=== PATIENT | female | born 1940 | race Caucasian/White ===

== ENCOUNTER 2017-01-19 13:05 | Emergency (ER) | payer OTHER, BC ==
[2017-01-19 13:19] VITALS: RESP 16
--- NOTE | 2017-01-19 14:18 | EDPHY ---
H & P Time Seen by Provider: 01/19/17 13:55 HPI/ROS: CHIEF COMPLAINT: Red, swollen ankle HISTORY OF PRESENT ILLNESS: Patient is a 76-year-old female who presents with ongoing left foot/ankle swelling. Her symptoms started in July. She has been seen multiple times to evaluate her foot swelling and redness. She is undergoing cataract surgery. She had preop prior to the 1st surgery last week. Dr. Kathleen cleared for surgery. On Thursday she saw a electric meter installer. Summer Internship nurse called this morning and stated she wanted her evaluated for clot consented the emergency department prior to cataract surgery tomorrow. The patient has no new complaints. It is not drastically changing. Dr. Kathleen performed her preop evaluation with the same symptoms. A swab was performed by Dr. Kathleen that was negative for bacteria. Patient had a recent hemoglobin A1c of 5.1. REVIEW OF SYSTEMS: My complete review of systems is negative except as mentioned in the HPI. Past Medical/Surgical History: Includes cataract, HTN, anxiety, high cholesterol Smoking Status: Never smoked Physical Exam: Vitals noted GENERAL: Well-appearing, in no acute distress, alert. HEENT: Eyes normal to inspection, normal pharynx, no signs of dehydration. NECK: No thyromegaly, no lymphadenopathy, supple. RESPIRATORY: Clear to auscultation bilaterally, no rales, rhonchi or wheezing. CVS: Regular rate and rhythm, no rubs, murmurs, or gallops. ABDOMEN: Soft, nontender, nondistended, no organomegaly. BACK: Normal to inspection, no CVA tenderness. SKIN: Normal color, no rash, warm, dry. No pallor. EXTREMITIES: patient has stasis skin changes on her lower extremities bilaterally. Her left foot has mild redness with a small ulceration. There is no significant discharge. There is mild tenderness to palpation surrounding area. She has mild swelling over her left lateral malleolus. There is no calf tenderness or redness. No streaking up the leg. She has bilateral knee swelling that is longstanding. NEURO/PSYCH: [Alert and oriented x3, normal mood and affect, normal motor sensory exam. No obvious cranial nerve deficit. Constitutional: Initial Vital Signs Temperature (C) 36.9 C 01/19/17 13:15 Heart Rate 75 01/19/17 13:15 Respiratory Rate 16 01/19/17 13:15 Blood Pressure 131/69 H 01/19/17 13:15 O2 Sat (%) 94 01/19/17 13:15 O2 Delivery Mode Room Air Allergies/Adverse Reactions: oxycodone [From OxyContin] Allergy (Verified 01/19/17 13:15) Home Medications: Medication Instructions Recorded Escitalopram Oxalate 01/19/17 Lisinopril 01/19/17 SIMVASTATIN 01/19/17 Medical Decision Making - Diagnostics Imaging Results: Imaging Impressions Extremity Venous Study 01/19/17 14:41 Impression: No deep venous thrombosis in the left lower extremity. Findings discussed with Chey Freeman M.D. at 15:14 hour, 01/19/2017. ED Course/Re-evaluation: In the emergency department I discussed possible etiologies with the patient. Ultrasound was ordered of the left lower extremity. Ultrasound left lower extremity: No DVT. I discussed the result with the patient. She is given warnings prior to leaving. She will return with worsening symptoms. Differential Diagnosis: My differential includes but is not limited to DVT, arterial occlusion, gout, ulceration, septic joint, abscess, cellulitis, diabetes Departure - Departure Disposition: Home, Routine, Self-Care Clinical Impression: Foot ulcer Qualifiers: Laterality: left Non-pressure ulcer stage: unspecified non-pressure ulcer stage Qualified Code(s): L97.529 - Non-pressure chronic ulcer of other part of left foot with unspecified severity Condition: Good Instructions: Pressure Ulcer (ED) Additional Instructions: Return with increasing pain, redness, fever or any other concerns. Your ultrasound was normal. Referrals: Sarahi Kathleen MD [Primary Care Provider] - 2-3 days, call for appt.
[2017-01-19 15:43] VITALS: BP 150/84; PULSE 62; TEMP 98.1; O2SAT 96
== END 2017-01-19 15:43 | disposition home or self-care (01) ==
DX: L97.529 Non-pressure chronic ulcer of other part of left foot with unspecified severity (principal); I10 Essential (primary) hypertension

== ENCOUNTER → 2017-04-25 | Outpatient (CLI) | payer OTHER, BC | LOC: BMCIMAGING 12:44 | PROVIDERS: ATTEND Family Medicine | DX: R05 Cough (principal); R50.9 Fever, unspecified; M25.78 Osteophyte, vertebrae ==

== ENCOUNTER 2018-07-12 09:52 | Inpatient (IN) | payer OTHER ==
--- NOTE | 2018-07-12 10:18 | EDPHY ---
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 C/o bk pain, N/V. Time Seen by Provider: 07/12/18 10:01 HPI/ROS: CHIEF COMPLAINT: Vomiting, back pain post mechanical fall HISTORY OF PRESENT ILLNESS: 77-year-old female states that 3 days ago she sustained a mechanical fall, slipped while she was cleaning at her daughter's house, fell on her buttock, injured her lower back on her buttock and also impacted the occipital region of her head. No loss of consciousness. No alcohol or drug use. No amnesia. No anticoagulant use but does note that starting that evening she has had intermittent episodes of vomiting as well as nonprogressive non thunderclap headache. No definitive midline C-spine pain but does note that she has felt "soreness"in her cervical region. She notes that she has had increasing difficulty caring for self and getting around her independent living facility [facility]. She denies: Peripheral paresthesia, weakness, numbness, facial injury, chest pain or injury, chest pain, syncope. PRIMARY CARE PROVIDER:Dr Muniz REVIEW OF SYSTEMS: 10 systems reviewed and negative with the exception of the elements mentioned in the history of present illness PAST MEDICAL/SURGICAL HISTORY: no anticoagulant use, history of hypertension. SOCIAL HISTORY: denies alcohol use at time of incident. Lives independently at [facility] PHYSICAL EXAM 1) GENERAL: Well-developed, well-nourished, alert and oriented. Appears to be in no acute distress. Answering questions appropriately. 2) HEAD: Normocephalic, atraumatic, no hematoma no depression 3) HEENT: Pupils equal, round, reactive to light bilaterally. Negative Horners. Nasopharynx, oropharynx, clear. No deformity or angulation of nose. No septal hematoma. No rhinorrhea. No oral trauma. Ears bilaterally with normal tympanic membranes. No hemotympanum. No fluid or blood in the external auditory canal. No raccoon eyes. No Jackson sign. Teeth are normally aligned with no gross malocclusion, TMJ bilaterally nontender, facial bones nontender including the zygomatic arch, maxilla mandible. 4) NECK: No cervical collar is on. Posterior cervical spine is nontender, no stepoff, no effusion. Full range of motion which does not elicit any midline cervical spine pain, no posterior midline tenderness, no step-off. 5) LUNGS: Clear to auscultation bilaterally, no wheezes, no rhonchi, no retractions. No obvious signs of trauma. No chest wall pain. No flaring, no grunting. Moving symmetrically. No crepitus. 6) HEART: [Regular rate and rhythm, 7) ABDOMEN: No guarding, no rebound, no focal tenderness, no peritoneal signs, no signs of trauma, no ecchymosis 8) MUSCULOSKELETAL: Moving all extremities, no focal areas of tenderness, no obvious trauma. No leg length discrepancy. No pain with range of motion of the femur on acetabulum. 9) BACK: Unable to fully differentiate true midline versus just lateral midline mid lumbar pain. No thoracic spine pain. There are no signs of trauma to the entirety of her back. She is also tender to palpation the sacrum as well as bilateral inferior buttock region with no signs of trauma such as ecchymosis or erythema. 10) SKIN: No laceration. No abrasion DIFFERENTIAL DIAGNOSIS: Not necessarily in any particular order, my differential diagnosis includes, but is not limited to, concussion, skull fracture, intraparenchymal contusion, subarachnoid, subdural and epidural hematoma. The patient understands that this diagnosis is provisional and can never be 100% accurate. - Personal History Current Tetanus/Diphtheria Vaccine: Unsure - Medical/Surgical History Hx Asthma: No Hx Chronic Respiratory Disease: No Hx Diabetes: No Hx Cardiac Disease: No Hx Renal Disease: No Hx Cirrhosis: No Hx Alcoholism: No Hx HIV/AIDS: No Hx Splenectomy or Spleen Trauma: No Other PMH: htn r rotator cuff/ r knee surg, HTN - Social History Smoking Status: Never smoked Constitutional: Initial Vital Signs Temperature (C) 36.9 C 07/12/18 09:57 Heart Rate 61 07/12/18 09:57 Respiratory Rate 16 07/12/18 09:57 Blood Pressure 195/76 H 07/12/18 09:57 O2 Sat (%) 94 07/12/18 09:57 O2 Delivery Mode Room Air Allergies/Adverse Reactions: oxycodone [From OxyContin] Allergy (Verified 01/19/17 13:15) Home Medications: Medication Instructions Recorded Escitalopram Oxalate 01/19/17 Lisinopril 01/19/17 SIMVASTATIN 01/19/17 Medical Decision Making - Diagnostics Imaging Results: Imaging Impressions Head CT 07/12/18 10:07 Impression: 1. No acute intracranial findings. 2. Diffuse cerebral atrophy with periventricular and subcortical low attenuation consistent with chronic microvascular ischemic gliosis. 3. Additional findings as above. Findings discussed with Jelena Gomez 07/12/2018 at 10:42. Cervical Spine CT 07/12/18 10:09 Impression: 1. No acute posttraumatic abnormality identified. If there is persistent pain or neurologic deficit, consider MRI and/or flexion and extension views if clinically indicated. 2. Multilevel degenerative change with spondylolistheses with probable moderate spinal canal narrowing from C5 through C7. 3. Additional findings as above. Findings discussed with Angelita Gomez on 07/12/2018 at 10:42 a.m. Lumbar Spine X-Ray 07/12/18 10:09 Impression: New/acute mild L1 compression fracture. No retropulsed component. Findings discussed with Emergency Department physician maintenance assistant, Angelita Gomez, on 07/12/2018 at 11:21 a.m. Sacrum and Coccyx X-Ray 07/12/18 10:09 Impression: Negative. No acute coccygeal or sacral fracture. Findings discussed with Emergency Department physician maintenance assistant, Angelita Gomez. Images reviewed myself ED Course/Re-evaluation: 10:15 a.m.: Will obtain imaging of the head C-spine as well as lumbar sacrum and pelvis. Case management has been made aware. I saw this patient independently based on established practice protocols. Care of patient under supervision of secondary supervising physician Dr Martinez with whom I discussed case. 11:25 a.m.: Patient has a new L1 compression fracture with no neurologic deficits lower extremities. She has had increasing difficulty caring for herself and her adult daughter is currently Hospital for total knee replacement. I think the patient should be admitted to the hospital for neurosurgery consultation, PT OT, pain management and likely rehabilitation care. Patient is agreeable with this. Will consult Neurosurgery and hospitalist services. 11:27 a.m.: Consultation with Dr. Saturnino Rojo who recommends MRI, Ewa mascorro, will consult for Neurosurgery 11:45 a.m.: Consultation with hospitalist Yuni, admit to Dr. Daniel Posada - Data Points Laboratory Results: Laboratory Results 07/12/18 10:02 07/12/18 10:02 07/12/18 07/12/18 10:02 10:02 WBC 10.54 10^3/uL H 10^3/uL (3.80-9.50) RBC 4.77 10^6/uL 10^6/uL (4.18-5.33) Hgb 13.8 g/dL g/dL (12.6-16.3) Hct 41.3 % % (38.0-47.0) MCV 86.6 fL fL (81.5-99.8) MCH 28.9 pg pg (27.9-34.1) MCHC 33.4 g/dL g/dL (32.4-36.7) RDW 14.0 % % (11.5-15.2) Plt Count 227 10^3/uL 10^3/uL (150-400) MPV 8.9 fL fL (8.7-11.7) Neut % (Auto) 82.3 % H % (39.3-74.2) Lymph % (Auto) 9.0 % L % (15.0-45.0) [place] % (Auto) 8.0 % % (4.5-13.0) Eos % (Auto) 0.1 % L % (0.6-7.6) Baso % (Auto) 0.2 % L % (0.3-1.7) Nucleat RBC Rel Count 0.0 % % (0.0-0.2) Absolute Neuts (auto) 8.68 10^3/uL H 10^3/uL (1.70-6.50) Absolute Lymphs (auto) 0.95 10^3/uL L 10^3/uL (1.00-3.00) Absolute Monos (auto) 0.84 10^3/uL H 10^3/uL (0.30-0.80) Absolute Eos (auto) 0.01 10^3/uL L 10^3/uL (0.03-0.40) Absolute Basos (auto) 0.02 10^3/uL 10^3/uL (0.02-0.10) Absolute Nucleated RBC 0.00 10^3/uL 10^3/uL (0-0.01) Immature Gran % 0.4 % % (0.0-1.1) Immature Gran # 0.04 10^3/uL 10^3/uL (0.00-0.10) Sodium 135 mEq/L mEq/L (135-145) Potassium 3.8 mEq/L mEq/L (3.3-5.0) Chloride 98 mEq/L mEq/L (97-110) Carbon Dioxide 27 mEq/l mEq/l (22-31) Anion Gap 10 mEq/L mEq/L (6-14) BUN 18 mg/dL mg/dL (7-23) Creatinine 0.5 mg/dL L mg/dL (0.6-1.0) Estimated GFR > 60 Glucose 110 mg/dL H mg/dL (70-100) Calcium 9.3 mg/dL mg/dL (8.5-10.4) Medications Given: Discontinued Medications Hydromorphone HCl (Dilaudid) 0.5 mg IVP EDNOW ONE Stop: 07/12/18 11:00 Last Admin: 07/12/18 11:02 Dose: 0.5 mg Departure - Departure Disposition: [facility] Inpatient Acute Clinical Impression: L1 vertebral fracture Condition: Fair Referrals: NONE *PRIMARY CARE P,. [Primary Care Provider] - As per Instructions
[2018-07-12] MEDS ORDERED: HYDROmorphONE/DILAUDID 2 MG/ML INJ IVP ONE (10:59)
[2018-07-12 11:40] LABS: PLATELET COUNT 227 10^3/uL (150-400)
[2018-07-12] MEDS ORDERED: ONDANSETRON DISINTEGRATING 4 MG TAB PO PRN (12:01)
[2018-07-12] MEDS ORDERED: HYDROmorphONE/DILAUDID 1 MG/ML INJ IVP PRN (12:01)
[2018-07-12] MEDS ORDERED: ACETAMINOPHEN 325 MG TAB PO PRN (12:01)
--- NOTE | 2018-07-12 13:19 | ASMTCMCOM ---
CM Note CM Note Notes: Patient lives independently at [facility] in [place]. She has a daughter, Marlena , who lives in [place] and her son Herbie lives in [place]. Marlena is in surgery having a total knee replacement (TKA) today. Patient will likely need HH or SNF at discharge. CM to follow Date Signed: 07/12/2018 01:18 PM Electronically Signed By:Elizabeth Arrington RN
--- NOTE | 2018-07-12 13:50 | GCON ---
NEUROSURGICAL CONSULTATION IN THE EMERGENCY DEPARTMENT DATE OF CONSULTATION: 07/12/2018 CHIEF COMPLAINT: Back pain. HISTORY OF PRESENT ILLNESS: This is a very pleasant 77-year-old female who tripped and fell down the stairs approximately 1 week ago with some low back pain that has slowly worsened. She also has some constipation. She complains of low back pain with no radiation. She complains of some abdominal pa in secondary to her constipation, no leg pain, no numbness, tingling or weakness in her legs. She st ates that at this point in time, it was bad enough that she came in for pain control, was found to atkinson ve an L1 compression fracture that is acute on MRI without significant retropulsion or stenosis. She denies any other neck pain, back pain, or any other complaints. PAST MEDICAL HISTORY: Positive for hypertension, hypercholesterolemia. PAST SURGICAL HISTORY: Includes a shoulder repair, right TKA, a T and A, and a hysterectomy. HOME MEDICATIONS: 1. Tylenol. 2. [place]. 3. Dilaudid. 4. Zofran. 5. Simvastatin. 6. Lisinopril. 7. Escitalopram oxalate. ALLERGIES: Some sort of [id number] allergy that caused her to have swelling. She does not kno w the name of the medication. FAMILY HISTORY: She has no significant family medical history. REVIEW OF SYSTEMS: A 10-point review of systems was negative except as stated above. SOCIAL HISTORY: She does not smoke. She does not drink. She does not use illicit drugs. PHYSICAL EXAMINATION: VITAL SIGNS: Blood pressure is 147/70. Heart rate is 70, respiratory rate 16 , sating 96% on room air. GENERAL APPEARANCE: She is alert and oriented x3. NEUROLOGIC: Pupils eq ual, round, reactive to light and accommodation. Extraocular muscles are intact. There is no facial asymmetry or tongue deviation. Sensation is intact in V1, V2, V3 distributions of the 5th cranial n erve bilaterally. Strength is 5/5 to left deltoid, biceps, triceps, wrist flexors, wrist extensors, hand intrinsics, right biceps, triceps, wrist flexors, wrist extensors. Some pain with the right fabrizio ulder, which she has had repaired. Strength is 5/5 to bilateral lower extremities and iliopsoas, yobani driceps, hamstrings, dorsiflexors, plantarflexors, EHLs. DTRs are +2/4 biceps, brachioradialis, oconnor llar, and Achilles. Toes are downgoing. There is no Rodgers's. No clonus. LABORATORY/IMAGING DATA: White blood cell count 10.54, hemoglobin 13.8, hematocrit 41.3. Platelets are 227. Sodium is 135, potassium 3.8, chloride 98, CO2 27, BUN 18, creatinine 0.5, glucose 110. MR I of the lumbar spine reveals an acute L1 compression fracture with 20% to 30% height loss with a min imal bulge to the posterior cortex, however, no retropulsed fragment or narrowing of the central arely l. Minimal paraspinal edema is present. Otherwise mild degenerative disk disease is present. Head CT has diffuse cerebral atrophy and ischemic gliosis. No significant acute pathology. Cervical spine CT: Multilevel degenerative change with spondylolisthesis probable moderate spinal canal narr owing C5 through C7. No fracture or malalignment. Lumbar x-ray reveals the L1 compression fracture and degenerative disk disease, some grade 1 anterolisthesis of L4 on L5 that is degenerative in natur e. IMPRESSION AND PLAN: Acute L1 compression fracture in this pleasant 77-year-old female. At this poi nt in time, she is being admitted to Medicine for pain control. We will get her a Ewa brace, get her up and mobilize. If we can get her pain controlled with the Ewa brace, then she may be discha rged with x-rays in approximately 4 weeks. If she is still having difficulty and cannot get her pain under control, she may consider a kyphoplasty. We will continue to follow for pain control. Please call with any changes in neurologic status. /[id number]/MODL
[2018-07-12] MEDS ORDERED: BISACODYL 10 MG SUPP PR PRN (14:03)
[2018-07-12] MEDS ORDERED: POLYETHYLENE GLYCOL 3350 17 GM PKT PO PRN (14:03)
[2018-07-12] MEDS: HYDROCODONE/APAP 5/325 TAB PO PRN ×3 (14:06→22:53)
[2018-07-12] MEDS: MAGNESIUM HYDROXIDE 30 ML UDCUP PO PRN (14:14)
--- NOTE | 2018-07-12 14:14 | PDGENHP ---
History and Physical - Chief Complaint Fall, L1 Fracture - History of Present Illness Naty Alvarado is a 77 yo F with a PMHx of HTN, HLD who presents to [facility] after fall found to have L1 compression fracture. Patient states that she was over her daughter's house 3 days ago when she missed a step on the stairs and fell on her back. She denies any LOC at the time but she does report she also hit the back of her head during the fall. She has had a mild headache since the fall which has been improving. She also reports some cervical neck pain since accident as well. She reports major pain is located in her lower back, non- radiating, sharp in sensation, worse with movement and improved with rest. It has been persistent since fall and worsening since yesterday which prompted further evaluation today. She denies any urinary/bowel incontinence, leg weakness, numbness, tingling, vision changes, hearing changes, slurred speech, LH/dizziness, chest pain, SOB, f/c. She also notes constipation. History Information - Allergies/Home Medication List Allergies/Adverse Reactions: No Known Allergies Allergy (Verified 07/12/18 13:29) Home Medications: Escitalopram Oxalate [Lexapro] 10 mg PO HS 01/19/17 [Last Taken 07/11/18] Lisinopril [Zestril 2.5 mg (*)] 2.5 mg PO DAILY 01/19/17 [Last Taken 07/11/18] Simvastatin [Zocor] 40 mg PO DAILY18 01/19/17 [Last Taken 07/11/18] Acetaminophen [Tylenol ES 500 mg (*)] 1,000 mg PO DAILY 07/12/18 [Last Taken ] Aspirin [Aspirin 81mg (*)] 81 mg PO HS 07/12/18 [Last Taken 07/11/18] C/E/Zn/Cu/OM3/DHA/EPA/LUT/ZEAX [Preservision Areds 2 Softgel] 1 each PO BIDMEAL 07/12/18 [Last Taken 07/11/18 18:00] Calcium Carbonate [Oyster Shell Calcium 500 mg (*)] 500 mg PO DAILY@12 07/12/18 [Last Taken 07/11/18] Carboxymethylcellulose 1% [Refresh Celluvisc (*)] 1 drop EACHEYE DAILY PRN 07/12 [Last Taken Unknown] Ibuprofen [Motrin (*)] 200 mg PO DAILY PRN 07/12/18 [Last Taken Unknown] Psyllium Husk (with Sugar) [Metamucil Packet] 1 each PO DAILY 07/12/18 [Last Taken 07/11/18] I have personally reviewed and updated: family history, medical history, social history, surgical history - Past Medical History hypertension, hyperlipidemia - Surgical History Additional surgical history: TKA - Family History Positive for: non-pertinent - Social History Smoking Status: Never smoked Review of Systems Review of Systems: ROS: 10pt was reviewed & negative except for what was stated in HPI & below Physical Exam Physical Exam: Temp Pulse Resp BP Pulse Ox 36.9 C 55 L 12 152/71 H 95 07/12/18 13:45 07/12/18 13:45 07/12/18 13:45 07/12/18 13:45 07/12/18 13:45 O2 (L/minute) 2 Constitutional: no apparent distress Eyes: PERRL Ears, Nose, Mouth, Throat: moist mucous membranes Cardiovascular: regular rate and rhythym Respiratory: clear to auscultation Gastrointestinal: soft, non-tender abdomen Genitourinary: no bladder tenderness Skin: warm Musculoskeletal: pain with ROM Neurologic: AAOx3 Psychiatric: interacting appropriately Lab Data & Imaging Review 07/12/18 10:02 07/12/18 10:02 WBC 10.54 10^3/uL (3.80-9.50) H 07/12/18 10:02 RBC 4.77 10^6/uL (4.18-5.33) 07/12/18 10:02 Hgb 13.8 g/dL (12.6-16.3) 07/12/18 10:02 Hct 41.3 % (38.0-47.0) 07/12/18 10:02 MCV 86.6 fL (81.5-99.8) 07/12/18 10:02 MCH 28.9 pg (27.9-34.1) 07/12/18 10:02 MCHC 33.4 g/dL (32.4-36.7) 07/12/18 10:02 RDW 14.0 % (11.5-15.2) 07/12/18 10:02 Plt Count 227 10^3/uL (150-400) 07/12/18 10:02 MPV 8.9 fL (8.7-11.7) 07/12/18 10:02 Neut % (Auto) 82.3 % (39.3-74.2) H 07/12/18 10:02 Lymph % (Auto) 9.0 % (15.0-45.0) L 07/12/18 10:02 [place] % (Auto) 8.0 % (4.5-13.0) 07/12/18 10:02 Eos % (Auto) 0.1 % (0.6-7.6) L 07/12/18 10:02 Baso % (Auto) 0.2 % (0.3-1.7) L 07/12/18 10:02 Nucleat RBC Rel Count 0.0 % (0.0-0.2) 07/12/18 10:02 Absolute Neuts (auto) 8.68 10^3/uL (1.70-6.50) H 07/12/18 10:02 Absolute Lymphs (auto) 0.95 10^3/uL (1.00-3.00) L 07/12/18 10:02 Absolute Monos (auto) 0.84 10^3/uL (0.30-0.80) H 07/12/18 10:02 Absolute Eos (auto) 0.01 10^3/uL (0.03-0.40) L 07/12/18 10:02 Absolute Basos (auto) 0.02 10^3/uL (0.02-0.10) 07/12/18 10:02 Absolute Nucleated RBC 0.00 10^3/uL (0-0.01) 07/12/18 10:02 Immature Gran % 0.4 % (0.0-1.1) 07/12/18 10:02 Immature Gran # 0.04 10^3/uL (0.00-0.10) 07/12/18 10:02 Sodium 135 mEq/L (135-145) 07/12/18 10:02 Potassium 3.8 mEq/L (3.3-5.0) 07/12/18 10:02 Chloride 98 mEq/L (97-110) 10/15/18 10:02 Carbon Dioxide 27 mEq/l (22-31) 07/12/18 10:02 Anion Gap 10 mEq/L (6-14) 07/12/18 10:02 BUN 18 mg/dL (7-23) 07/12/18 10:02 Creatinine 0.5 mg/dL (0.6-1.0) L 07/12/18 10:02 Estimated GFR > 60 07/12/18 10:02 Glucose 110 mg/dL (70-100) H 07/12/18 10:02 Calcium 9.3 mg/dL (8.5-10.4) 07/12/18 10:02 Assessment & Plan Assessment: L1 vertebral fracture (Acute) - S/p mechanical fall - Seen on CT/MRI - Neurosurgery consulted who recommend non-surgical intervention for now with pain control, if this is not effective they will consider kyphoplasty - [place] Brace per neurosurgery - Pain control PRN - Bowel regimen ordered - PT/OT Mechanical Fall - Reports tripping over stairs, hit head - CT Head/C- Spine negative for acute injury - Management of L1 Fracture as above - Continue to monitor, if change in mental status, repeat head imaging HTN - Continue home Lisinopril HLD - Continue home Statin FEN: PRN Ppx: Lovenox Code: DNR Dispo: Pending clinical course, PT/OT recommendations
[2018-07-12] MEDS: HYDROmorphONE/DILAUDID 2 MG/ML INJ IVP PRN (14:27)
[2018-07-12] MEDS ORDERED: CARBOXYMETHYLCELLULOSE 1% 0.4 ML DROPERETTE EACHEYE PRN (14:27)
[2018-07-12] MEDS ORDERED: HYDROmorphone HCL 0.5 MG/0.5 ML SYR IVP PRN (14:30)
[2018-07-12] MEDS ORDERED: PNEUMOC 13-VAL CONJ-DIP CRM/PF 0.5 ML SYR IM ONE (15:16)
--- NOTE | 2018-07-12 15:19 | PDMN ---
Medical Necessity Medical necessity: MCG: GRG Musculoskeletal disease compression fx of first lumbar vertebra, initial encounter for closed fx 3 days: Pt is 77yr. old female who fell on stairs and fell on her back. now with sig. pain, worse with movement, persistent since fall and worsening. neuro consult: non surgical for now- cont. to monitor [place] Brace, PT/OT anticipate > 2 MN ongoing med nec care, further monitoring of mental status and pain, , PT/OT
[2018-07-12] MEDS ORDERED: hydrALAZINE 10 MG TAB PO PRN (15:30)
[2018-07-12] MEDS ORDERED: LISINOPRIL 2.5 MG TAB PO SCH (15:30)
[2018-07-12] MEDS: LISINOPRIL 5 MG TAB PO SCH (15:39)
[2018-07-12] MEDS: NS 1,000 ML IV SCH (18:06)
[2018-07-12] MEDS: IBUPROFEN 200 MG TAB PO PRN (18:13)
[2018-07-12] MEDS: ATORVASTATIN CALCIUM 20 MG TAB PO SCH (18:13)
[2018-07-12] MEDS: ASPIRIN 81 MG CHEWABLE TAB PO SCH (20:35)
[2018-07-12] MEDS: SENNOSIDES/DOCUSATE SODIUM TAB PO SCH (20:35)
[2018-07-12] MEDS: ESCITALOPRAM OXALATE 10 MG TAB PO SCH (20:35)
[2018-07-13] MEDS: HYDROmorphONE/DILAUDID 2 MG/ML INJ IVP PRN (08:19)
[2018-07-13] MEDS: HYDROCODONE/APAP 5/325 TAB PO PRN ×3 (08:21→18:39)
[2018-07-13] MEDS: SENNOSIDES/DOCUSATE SODIUM TAB PO SCH ×2 (08:29→20:01)
[2018-07-13] MEDS: LACTULOSE 20 GM/30 ML UDCUP PO PRN (08:29)
[2018-07-13] MEDS: LISINOPRIL 5 MG TAB PO SCH (08:30)
[2018-07-13] MEDS: ENOXAPARIN 40 MG/0.4 ML SYR SC SCH (08:30)
--- NOTE | 2018-07-13 08:34 | NEUSURGPN ---
Assessment/Plan: A: 77 yo F with back pain and L1 compression fx after fall P: Pain management - pt refusing [place] overnight now with out of control pain this am. Pt needs to stay on a better schedule of meds PT/OT Brace when OOB If fails bracing can consider kyphoplasty D/w Dr Campos Call NS with any issues Subjective: Pt resting in bed, c/o severe back pain and unable to roll over in bed Objective: AAOx3 tearful d/t pain VSS MAEx4 +LT Urinary Catheter in Place: No - Physician Discussed Patient with : Andres Neurosurgery Physical Exam - Vitals, I&O, Labs I and O 07/12/18 07/13/18 07/14/18 05:59 05:59 05:59 Intake Total 1500 Output Total 400 Balance 1100 Weight 68.039 kg Intake: Oral (ml) 300 IV Infused (ml) 1200 Ns 1,000 ml @ 100 mls/hr 1200 IV CONT SINTIA Rx#: [id number] Output: Urine (ml) 400 Bedside Commode 400 Other: Intake Quantity Yes Sufficient Number of Voids Bedside Commode 1 Vital Signs Temp Pulse Resp BP Pulse Ox 36.5 C 56 L 14 154/69 H 94 07/13/18 07:14 07/13/18 07:14 07/13/18 07:14 07/13/18 08:30 07/13/18 07:14 ICD10 Worksheet Patient Problems: Problems Problem Status Onset L1 vertebral fracture Acute
[2018-07-13] MEDS ORDERED: LISINOPRIL 5 MG TAB PO SCH (09:00)
[2018-07-13] MEDS ORDERED: LISINOPRIL 2.5 MG TAB PO SCH (09:00)
[2018-07-13] MEDS: HYDROmorphONE/DILAUDID 2 MG TAB PO PRN (10:13)
--- NOTE | 2018-07-13 11:14 | HOSPPROG ---
Hospitalist Progress Note Assessment/Plan: L1 vertebral fracture (Acute) - S/p mechanical fall - Seen on CT/MRI - Neurosurgery consulted who recommend non-surgical intervention for now with pain control, if this is not effective they will consider kyphoplasty - Ewa Brace per neurosurgery - Pain control PRN - Bowel regimen ordered - PT/OT Mechanical Fall - Reports tripping over stairs, hit head - CT Head/C- Spine negative for acute injury - Management of L1 Fracture as above - Continue to monitor, if change in mental status, repeat head imaging HTN - Continue home Lisinopril HLD - Continue home Statin FEN: PRN Ppx: Lovenox Code: DNR Dispo: Pending clinical course, PT/OT recommendations Subjective: Patient reports intense, severe pain this AM in lower back, has improved since receiving pain medications Objective: Vital Signs Temp Pulse Resp BP Pulse Ox 36.5 C 56 L 14 154/69 H 94 07/13/18 07:14 07/13/18 07:14 07/13/18 07:14 07/13/18 08:30 07/13/18 07:14 07/12/18 07/13/18 07/14/18 05:59 05:59 05:59 Intake Total 1500 Output Total 400 200 Balance 1100 -200 - Physical Exam Constitutional: no apparent distress Eyes: PERRL Ears, Nose, Mouth, Throat: moist mucous membranes Cardiovascular: regular rate and rhythym Respiratory: no respiratory distress Gastrointestinal: soft, non-tender abdomen Genitourinary: no bladder tenderness Skin: warm Musculoskeletal: pain with ROM Neurologic: AAOx3 Psychiatric: interacting appropriately ICD10 Worksheet Patient Problems: Problems Problem Status Onset L1 vertebral fracture Acute
--- NOTE | 2018-07-13 11:14 | ASMTCMCOM ---
CM Note CM Note Notes: Patient admitted after a fall in which she sustained a L1 compression fracture. She is currently complaining of a lot of pain. A brace has been recommended. I spoke with patient's daughter (who is also at [facility] after a TKA). She feels that SNF rehab would be most appropriate for patient because she lives alone and daughter cannot help right away (she is willing to take her in in a few weeks, however). We discussed options of facilities including [facility], [facility] and [facility]. Daughter will consult with patient and will let us know where they want referrals sent. PT/OT evals pending. Case Management will follow. Date Signed: 07/13/2018 11:13 AM Electronically Signed By:Kami Adams RN
[2018-07-13] MEDS: ONDANSETRON 4 MG/2 ML VIAL IVP PRN (11:22)
[2018-07-13] MEDS: CALCIUM CARBONATE 500 MG TAB PO SCH (11:22)
[2018-07-13] MEDS ORDERED: PROCTOFOAM HC 10 GM CAN PR PRN (17:38)
[2018-07-13] MEDS ORDERED: MAGNESIUM CITRATE 300 ML BOTTLE PO ONE (17:38)
[2018-07-13] MEDS: ATORVASTATIN CALCIUM 20 MG TAB PO SCH (18:02)
[2018-07-13] MEDS: ASPIRIN 81 MG CHEWABLE TAB PO SCH (20:01)
[2018-07-13] MEDS: ESCITALOPRAM OXALATE 10 MG TAB PO SCH (20:01)
[2018-07-14] MEDS: HYDROCODONE/APAP 5/325 TAB PO PRN ×4 (03:09→20:25)
[2018-07-14] MEDS: LISINOPRIL 5 MG TAB PO SCH (09:20)
[2018-07-14] MEDS: IBUPROFEN 200 MG TAB PO PRN ×3 (09:20→22:30)
[2018-07-14] MEDS: NS 1,000 ML IV SCH (09:26)
[2018-07-14] MEDS: ONDANSETRON 4 MG/2 ML VIAL IVP PRN (09:33)
[2018-07-14] MEDS: ENOXAPARIN 40 MG/0.4 ML SYR SC SCH (09:38)
--- NOTE | 2018-07-14 09:38 | SOAPPROG ---
SOAP Progress Note Assessment/Plan: Assessment: 77 yo F with L1 compression fracture after fall Plan: stable pain not improving with Jewit brace, patient would like kyphoplasty will look at OR schedule for tomorrow npo tonight hold lovenox for tomorrow morning dose please call with neuro changes discussed with Dr Campos 07/14/18 09:36 Subjective: continued back pain, brace uncomfortable and not helping with pain. no leg pain , no weakness. Objective: Vital Signs Temp Pulse Resp BP Pulse Ox 36.7 C 57 L 17 136/78 H 94 07/14/18 08:00 07/14/18 08:00 07/14/18 08:00 07/14/18 08:00 07/14/18 08:00 07/13/18 07/14/18 07/15/18 05:59 05:59 05:59 Intake Total 1500 1200 Output Total 400 400 Balance 1100 800 AAOx4, +FC PERRL, EOMI, no facial droop 5/5 + light touch ICD10 Worksheet Patient Problems: Problems Problem Status Onset L1 vertebral fracture Acute
[2018-07-14] MEDS: SENNOSIDES/DOCUSATE SODIUM TAB PO SCH ×2 (09:46→20:25)
--- NOTE | 2018-07-14 10:42 | HOSPPROG ---
Hospitalist Progress Note Assessment/Plan: L1 vertebral fracture (Acute) - S/p mechanical fall - Seen on CT/MRI - Neurosurgery consulted who will likely perform kyphoplasty tomorrow - Anabel Brace per neurosurgery - Pain control PRN - Bowel regimen ordered - PT/OT Mechanical Fall - Reports tripping over stairs, hit head - CT Head/C- Spine negative for acute injury - Management of L1 Fracture as above - Continue to monitor, if change in mental status, repeat head imaging HTN - Continue home Lisinopril HLD - Continue home Statin FEN: PRN Ppx: Lovenox, hold tomorrow's morning dose for OR Code: DNR Dispo: Pending clinical course, PT/OT recommendations Subjective: Patient reports pain this morning, had BMs overnight, feels improved from constipation stand point Objective: Vital Signs Temp Pulse Resp BP Pulse Ox 36.7 C 57 L 17 136/78 H 94 07/14/18 08:00 07/14/18 08:00 07/14/18 08:00 07/14/18 08:00 07/14/18 08:00 07/13/18 07/14/18 07/15/18 05:59 05:59 05:59 Intake Total 1500 1200 Output Total 400 400 Balance 1100 800 - Physical Exam Constitutional: no apparent distress, uncomfortable Eyes: PERRL Ears, Nose, Mouth, Throat: moist mucous membranes Cardiovascular: regular rate and rhythym Respiratory: no respiratory distress, clear to auscultation Gastrointestinal: soft, non-tender abdomen Genitourinary: no bladder tenderness Skin: warm Musculoskeletal: pain with ROM Neurologic: AAOx3 Psychiatric: interacting appropriately ICD10 Worksheet Patient Problems: Problems Problem Status Onset L1 vertebral fracture Acute
[2018-07-14] MEDS: CALCIUM CARBONATE 500 MG TAB PO SCH (10:51)
[2018-07-14] MEDS: METHOCARBAMOL 500 MG TAB PO PRN ×3 (10:51→22:30)
--- NOTE | 2018-07-14 14:08 | ASMTCMCOM ---
CM Note CM Note Notes: Spoke w/pt's dtr Mima, she would like referrals to go to [facility], referrals sent. Pt may be able to dc . DC Plan: SNF Date Signed: 07/14/2018 02:07 PM Electronically Signed By:Ashwini Lai RN
[2018-07-14] MEDS: ATORVASTATIN CALCIUM 20 MG TAB PO SCH (17:05)
[2018-07-14] MEDS: ESCITALOPRAM OXALATE 10 MG TAB PO SCH (20:24)
[2018-07-14] MEDS: ASPIRIN 81 MG CHEWABLE TAB PO SCH (20:25)
[2018-07-15] MEDS: HYDROCODONE/APAP 5/325 TAB PO PRN ×3 (04:19→18:21)
[2018-07-15] MEDS: METHOCARBAMOL 500 MG TAB PO PRN ×2 (04:19→10:42)
[2018-07-15] MEDS: LISINOPRIL 5 MG TAB PO SCH (08:45)
[2018-07-15] MEDS: SENNOSIDES/DOCUSATE SODIUM TAB PO SCH ×2 (08:49→21:26)
--- NOTE | 2018-07-15 08:59 | NEUSURGPN ---
Assessment/Plan: Assessment: 77 yo F with L1 compression fracture after fall Plan: Tolerating pain well in backpack style TLSO Standing/upright xrays in brace pending [facility] pain management PT/OT please call with neuro changes discussed with Dr Campos Subjective: Pain more tolerable this morning Objective: Sitting in chair eating breakfast. NAD A&Ox3 MAEx4 5/5 and equal. Sensation intact LT - Physician Discussed Patient with : And[facility] Neurosurgery Physical Exam - Vitals, I&O, Labs I and O 07/14/18 07/15/18 07/16/18 05:59 05:59 05:59 Intake Total 1200 1200 Output Total 400 300 Balance 800 900 Intake: Oral (ml) 1200 1200 Output: Urine (ml) 400 300 Toilet 400 300 Other: Intake Quantity Yes Sufficient Number of Voids Bedside Commode 1 Toilet 1 Number of Stools Bedside Commode 2 1 Toilet 1 Vital Signs Temp Pulse Resp BP Pulse Ox 36.8 C 60 12 159/67 H 92 07/15/18 08:00 07/15/18 08:00 07/15/18 08:00 07/15/18 08:45 07/15/18 08:00 ICD10 Worksheet Patient Problems: Problems Problem Status Onset L1 vertebral fracture Acute
[2018-07-15] MEDS: CALCIUM CARBONATE 500 MG TAB PO SCH (11:54)
--- NOTE | 2018-07-15 12:41 | HOSPPROG ---
Hospitalist Progress Note Assessment/Plan: L1 vertebral fracture (Acute) - S/p mechanical fall - Seen on CT/MRI - Neurosurgery consulted who were recommending kyphoplasty however patient has decided to not pursue surgery - Ewa Brace per neurosurgery - Pain control PRN - Bowel regimen ordered - PT/OT- recommending SNF - Repeat XR ordered by Neurosurgery this AM Mechanical Fall - Reports tripping over stairs, hit head - CT Head/C- Spine negative for acute injury - Management of L1 Fracture as above - Continue to monitor, if change in mental status, repeat head imaging HTN - Continue home Lisinopril HLD - Continue home Statin FEN: PRN Ppx: Lovenox, hold tomorrow's morning dose for OR Code: DNR Dispo: Pending clinical course, PT/OT recommendations- recommending SNF, CM working on this Subjective: Patient with moderate LBP this morning Objective: Vital Signs Temp Pulse Resp BP Pulse Ox 36.8 C 60 12 159/67 H 92 07/15/18 08:00 07/15/18 08:00 07/15/18 08:00 07/15/18 08:45 07/15/18 08:00 07/14/18 07/15/18 07/16/18 05:59 05:59 05:59 Intake Total 1200 1200 Output Total 400 300 Balance 800 900 - Physical Exam Constitutional: no apparent distress Eyes: PERRL Ears, Nose, Mouth, Throat: moist mucous membranes Cardiovascular: regular rate and rhythym Respiratory: no respiratory distress, clear to auscultation Gastrointestinal: soft, non-tender abdomen Skin: warm Musculoskeletal: pain with ROM Neurologic: AAOx3 Psychiatric: interacting appropriately ICD10 Worksheet Patient Problems: Problems Problem Status Onset L1 vertebral fracture Acute
--- NOTE | 2018-07-15 14:02 | ASMTCMCOM ---
CM Note CM Note Notes: [facility] has no bed availability and does not take pt insurance, [facility] was denied insurance auth by [facility] since they are out of network. Pt chooses [facility], insurance authorization needed and [facility] asked to pursue auth. Pt dghtr Mag[facility] updated. Pt may now want surgery, which may be tomorrow. CM to follow. Date Signed: 07/15/2018 02:01 PM Electronically Signed By:ANTHONY Faust
[2018-07-15] MEDS: ATORVASTATIN CALCIUM 20 MG TAB PO SCH (18:20)
[2018-07-15] MEDS: HYDROmorphONE/DILAUDID 2 MG TAB PO PRN (21:25)
[2018-07-15] MEDS: ESCITALOPRAM OXALATE 10 MG TAB PO SCH (21:26)
[2018-07-15] MEDS: ASPIRIN 81 MG CHEWABLE TAB PO SCH (21:26)
[2018-07-16] MEDS: HYDROCODONE/APAP 5/325 TAB PO PRN ×2 (03:09→19:02)
[2018-07-16] MEDS: HYDROmorphONE/DILAUDID 2 MG TAB PO PRN (05:37)
[2018-07-16] MEDS ORDERED: BISACODYL 10 MG SUPP PR PRN (08:28)
--- NOTE | 2018-07-16 09:30 | NEUSURGPN ---
Assessment/Plan: Assessment: 77 yo F with L1 compression fracture after fall Plan: Patient's pain currently not under control. Discussed with Patient and family and she would like to proceed with a kyphoplasty. Patient currently NPO [facility] pain management please call with neuro changes IR performed L1 kyphoplasty. Will s/o at this time. Please notify NS with any change in neuro/motor exam Subjective: Low back pain, worse then prior days. Required increased pain medications over night. Objective: Objective: NAD, AOx3 MAEx4 5/5 and equal + light touch - Physician Discussed Patient with : [facility] Neurosurgery Physical Exam - Vitals, I&O, Labs I and O 07/15/18 07/16/18 07/17/18 05:59 05:59 05:59 Intake Total 1200 850 Output Total 300 500 Balance 900 350 Intake: Oral (ml) 1200 850 Output: Urine (ml) 300 500 Bedside Commode 400 Toilet 300 100 Other: Intake Quantity Yes Sufficient Number of Voids Bedside Commode 1 1 Toilet 1 1 Number of Stools Bedside Commode 1 Toilet 1 Vital Signs Temp Pulse Resp BP Pulse Ox 36.7 C 53 L 15 183/78 H 99 07/16/18 08:00 07/16/18 08:00 07/16/18 08:00 07/16/18 08:00 07/16/18 08:00 ICD10 Worksheet Patient Problems: Problems Problem Status Onset L1 vertebral fracture Acute
[2018-07-16] MEDS: LISINOPRIL 5 MG TAB PO SCH (10:13)
[2018-07-16] MEDS: SENNOSIDES/DOCUSATE SODIUM TAB PO SCH ×2 (10:16→22:19)
--- NOTE | 2018-07-16 10:36 | HOSPPROG ---
Hospitalist Progress Note Assessment/Plan: * Lumbar compression fx, acute * constipation * mechanical fall at home * HTN, essential chronic worse here likely due to pain, constipation PLANS: * she has now decided on kyphoplasty due to refractory pain, immobility; await OR time * will add enema as current laxatives ineffective * PT OT as able SUBJECTIVE: pain not improving, unmanagable, unable to mobilize no BM after stool softeners, suppositiry OBJECTIVE: vitals: some HTN suspect due to pain, otherwise stable no fever exam: alert, oriented skin warm dry color ok resp easy lungs clear heart reg abd soft, some mild LLQ tenderness w stool no edema Objective: Vital Signs Temp Pulse Resp BP Pulse Ox 36.7 C 53 L 15 183/78 H 99 07/16/18 08:00 07/16/18 08:00 07/16/18 08:00 07/16/18 10:13 07/16/18 08:00 07/15/18 07/16/18 07/17/18 06:59 06:59 06:59 Intake Total 1200 850 Output Total 300 500 200 Balance 900 350 -200 ICD10 Worksheet Patient Problems: Problems Problem Status Onset L1 vertebral fracture Acute
[2018-07-16] MEDS ORDERED: MIDAZOLAM 2 MG/2 ML VIAL IVP PRN (11:55)
[2018-07-16] MEDS ORDERED: NS 1,000 ML IV ONE (11:55)
[2018-07-16] MEDS ORDERED: ceFAZolin 2 GM/DEXTROSE 100 ML IV ONE ×2 (11:55→15:00)
[2018-07-16] MEDS ORDERED: fentaNYL 100 MCG/2 ML INJ IVP PRN (11:55)
[2018-07-16] MEDS ORDERED: DEXAMETHASONE 10 MG/ML VIAL IVP ONE (11:55)
[2018-07-16] MEDS ORDERED: FLUMAZENIL 0.5 MG/5 ML MDV IVP PRN (11:55)
[2018-07-16] MEDS ORDERED: NALOXONE HCL 0.4 MG/ML INJ IVP PRN (11:55)
[2018-07-16] MEDS ORDERED: MEPERIDINE 25 MG/ML SYR IVP PRN (11:55)
[2018-07-16 12:44] LABS: INR 1.09 (0.83-1.16); PROTIME(PATIENT) 14.3 SEC (12.0-15.0)
[2018-07-16] MEDS: CALCIUM CARBONATE 500 MG TAB PO SCH (13:20)
--- NOTE | 2018-07-16 14:39 | ASMTCMCOM ---
CM Note CM Note Notes: Pt to OR today for kypho. LUCI Cotton with [phone] F: [phone] reports insurance auth will not be obtained until Thursday since they do not work weekends. Updated clincials need to be sent to Thursday. CM to follow. Date Signed: 07/16/2018 02:39 PM Electronically Signed By:ANTHONY Faust
--- NOTE | 2018-07-16 15:48 | PDPROPOC ---
Sedation Plan of Care Sedation Plan of Care: vital signs stable, mental status noted, patient educated of risks, benefits, alternatives, patient can tolerate sedation ASA Classification: ASA 3 Planned drugs: fentanyl, midazolam Mallampati Score: Class 1 Mallampati Reference Image: Patient passed 3-3-2 rule?: Yes
--- NOTE | 2018-07-16 15:51 | PDGENHP ---
History & Physical Chief Complaint: SEVERE BACK PAIN History of Present Illness: FELL 07/12. 9/10 PAIN ALL THE TIME. MID BACK PAIN. MRI WITH MODERATE COMPRESSION OF L1. Pertinent Past, Social, Family History: HTN, INCREASED CHOLESTEROL Relevant Physical Exam: SEVERE MID TO LOWER BACK PAIN CORRESPONDING TO L1. NO RADICULOPATHY. Cardiorespiratory Assessment: RRR, CTA
[2018-07-16] MEDS ORDERED: DEXAMETHASONE 10 MG/ML VIAL ONE (15:53)
[2018-07-16] MEDS ORDERED: LIDOCAINE 1% 300 MG/30 ML SDV ONE (16:01)
[2018-07-16] MEDS ORDERED: BUPIVACAINE 0.5% 30 ML SDV ONE (16:08)
[2018-07-16] MEDS ORDERED: fentaNYL 100 MCG/2 ML INJ ONE (16:18)
[2018-07-16] MEDS ORDERED: NALOXONE HCL 0.4 MG/ML INJ ONE (16:18)
[2018-07-16] MEDS ORDERED: MIDAZOLAM 2 MG/2 ML VIAL ONE (16:18)
[2018-07-16] MEDS ORDERED: FLUMAZENIL 0.5 MG/5 ML MDV IVP ONE (16:19)
[2018-07-16] MEDS ORDERED: ONDANSETRON 4 MG/2 ML VIAL IVP ONE (16:42)
--- NOTE | 2018-07-16 18:07 | PDRADPN ---
Radiology Procedure Note Date of Procedure: 07/16/18 Radiologist: Ivis Rasmussen Anesthesia: IV Sedation Pre-op Diagnosis: L1 fracture Post-op Diagnosis: same Indication: severe pain Procedure: L1 kyphoplasty Finding(s): 6cc cement injected, filling cleft Inf/Abcess present in the surg proc area at time of surgery?: No
[2018-07-16] MEDS: ATORVASTATIN CALCIUM 20 MG TAB PO SCH (21:45)
[2018-07-16] MEDS: ESCITALOPRAM OXALATE 10 MG TAB PO SCH (22:18)
[2018-07-16] MEDS: MAGNESIUM HYDROXIDE 30 ML UDCUP PO PRN (22:18)
[2018-07-16] MEDS: ASPIRIN 81 MG CHEWABLE TAB PO SCH (22:19)
[2018-07-16] MEDS: METHOCARBAMOL 500 MG TAB PO PRN (22:20)
[2018-07-17] MEDS: LISINOPRIL 5 MG TAB PO SCH (09:36)
[2018-07-17] MEDS: SENNOSIDES/DOCUSATE SODIUM TAB PO SCH ×2 (09:36→21:23)
[2018-07-17] MEDS: METHOCARBAMOL 500 MG TAB PO PRN ×2 (09:36→21:23)
[2018-07-17] MEDS: CALCIUM CARBONATE 500 MG TAB PO SCH (11:55)
[2018-07-17] MEDS: IBUPROFEN 200 MG TAB PO PRN ×2 (12:16→17:49)
--- NOTE | 2018-07-17 17:43 | HOSPPROG ---
Hospitalist Progress Note Assessment/Plan: * Lumbar compression fx, acute * Status post kyphoplasty * Absence of any neurologic symptoms * constipation * Is having bowel movements here now * mechanical fall at home, gait instability * HTN, essential chronic worse here likely due to pain, constipation PLANS: * PT OT as able * Pain management * Fall risk precautions * DVT prophylaxis * Possible senior living facility tomorrow SUBJECTIVE: Had kyphoplasty yesterday, and has new brace on today Still with pain but it is improved since yesterday. She is able to do some walking with assistance and walker but still fairly limited by pain. No radicular symptoms OBJECTIVE: vitals: blood pressure is better, otherwise stable no fever exam: alert, oriented skin warm dry color ok resp easy lungs clear heart reg abd soft, some mild LLQ tenderness w stool no edema Objective: Vital Signs Temp Pulse Resp BP Pulse Ox 36.6 C 58 L 15 141/62 H 96 07/17/18 15:43 07/17/18 15:43 07/17/18 15:43 07/17/18 15:43 07/17/18 15:43 07/16/18 07/17/18 07/18/18 06:59 06:59 06:59 Intake Total 850 400 Output Total 500 800 Balance 350 -400 PT 14.3 SEC (12.0-15.0) 07/16/18 12:17 INR 1.09 (0.83-1.16) 07/16/18 12:17 ICD10 Worksheet Patient Problems: Problems Problem Status Onset L1 vertebral fracture Acute
[2018-07-17] MEDS: ATORVASTATIN CALCIUM 20 MG TAB PO SCH ×2 (17:49→17:50)
[2018-07-17] MEDS: MAGNESIUM HYDROXIDE 30 ML UDCUP PO PRN (18:40)
[2018-07-17] MEDS: ESCITALOPRAM OXALATE 10 MG TAB PO SCH (21:23)
[2018-07-17] MEDS: ASPIRIN 81 MG CHEWABLE TAB PO SCH (21:23)
[2018-07-17] MEDS: HYDROCODONE/APAP 5/325 TAB PO PRN (22:58)
[2018-07-18] MEDS: IBUPROFEN 200 MG TAB PO PRN ×2 (04:26→12:55)
[2018-07-18] MEDS: LACTULOSE 20 GM/30 ML UDCUP PO PRN (04:27)
[2018-07-18] MEDS: LISINOPRIL 5 MG TAB PO SCH (09:12)
[2018-07-18] MEDS: METHOCARBAMOL 500 MG TAB PO PRN ×2 (09:14→17:05)
[2018-07-18] MEDS: ENOXAPARIN 40 MG/0.4 ML SYR SC SCH (09:16)
[2018-07-18] MEDS: SENNOSIDES/DOCUSATE SODIUM TAB PO SCH ×2 (09:18→20:26)
[2018-07-18] MEDS ORDERED: CYCLOBENZAPRINE 10 MG TAB PO PRN (12:42)
--- NOTE | 2018-07-18 12:48 | HOSPPROG ---
Hospitalist Progress Note Assessment/Plan: The patient is a 77-year-old female with PMH hypertension and constipation who was admitted for back pain secondary to L1 compression fracture after she fell. ASSESSMENT/PLAN: Closed compression fracture L1, status post kyphoplasty POD #2 Low back pain-muscle spasms Hypertension Constipation -PT/OT. -prn analgesic/muscle relaxant. Consider to change muscle relaxant in AM if Robaxin is not helping. -pending SNF placement tomorrow for continued therapy VTE prophylaxis: Lovenox. Code Status: DNR Status: Inpatient for greater than 2 midnight stay. Disposition: Med surge with discharge anticipated tomorrow This patient is new to me. Reviewed patient's chart/records for this visit. ____ SUBJECTIVE: Today the patient feels okay. She continues to have pain in her low back. OBJECTIVE: Physical Exam: General: The patient is an elderly female who is alert and in no acute distress. HEENT: normocephalic, extraocular movements intact, conjunctivae clear. Mucous membranes moist. Neck: trachea midline, no visible masses. CV: +S1/S2, RRR, no MRG. Resp: unlabored, CTAB no RRW. Abd: soft and nondistended. Bowel sounds present. Musculoskeletal: Normal muscle tone/bulk. Neuro: cranial nerves II XII grossly intact. Intact gross motor and sensory function. Psych: Appropriate mood and appropriate affect. Skin: No pallor. No petechiae. Heme/lymph: peripheral edema at bilateral lower extremities. Labs/Imaging/Other Tests: Personally reviewed/interpreted. Lumbar [id number] anterior superior wedge compression fracture of L1. Objective: Vital Signs Temp Pulse Resp BP Pulse Ox 36.9 C 68 15 140/67 H 90 L 07/18/18 08:00 07/18/18 08:00 07/18/18 08:00 07/18/18 08:00 07/18/18 08:00 07/17/18 07/18/18 07/19/18 05:59 05:59 05:59 Intake Total 400 1000 Output Total 800 Balance -400 1000 PT 14.3 SEC (12.0-15.0) 07/16/18 12:17 INR 1.09 (0.83-1.16) 07/16/18 12:17 - Time Spent With Patient Time Spent with Patient: greater than 35 minutes Time Spent with Patient: Greater than 35 minutes spent on this patients care, greater than 50% of time spent counseling, educating, and coordinating care regarding the above mentioned plan. ICD10 Worksheet Patient Problems: Problems Problem Status Onset L1 vertebral fracture Acute
[2018-07-18] MEDS: CALCIUM CARBONATE 500 MG TAB PO SCH (12:55)
[2018-07-18] MEDS: HYDROCODONE/APAP 5/325 TAB PO PRN ×2 (16:57→21:09)
[2018-07-18] MEDS: ESCITALOPRAM OXALATE 10 MG TAB PO SCH (20:26)
[2018-07-18] MEDS: ASPIRIN 81 MG CHEWABLE TAB PO SCH (20:26)
[2018-07-19] MEDS: HYDROCODONE/APAP 5/325 TAB PO PRN ×2 (06:30→12:24)
[2018-07-19] MEDS: ENOXAPARIN 40 MG/0.4 ML SYR SC SCH (08:36)
[2018-07-19] MEDS: LISINOPRIL 5 MG TAB PO SCH (08:43)
[2018-07-19] MEDS: SENNOSIDES/DOCUSATE SODIUM TAB PO SCH (08:43)
[2018-07-19 08:49] VITALS: BP 154/58
--- NOTE | 2018-07-19 12:08 | PDIAF ---
- Diagnosis Code Status: Do Not Resuscitate - Medication Management Discharge Medications: Medications to Continue on Transfer Escitalopram Oxalate [Lexapro 10 MG] 10 mg PO HS 01/19/17 [Last Taken 07/11/18] Lisinopril [Zestril 2.5 mg (*)] 2.5 mg PO DAILY 01/19/17 [Last Taken 07/11/18] Simvastatin [Zocor] 40 mg PO DAILY18 01/19/17 [Last Taken 07/11/18] Acetaminophen [Tylenol ES 500 mg (*)] 1,000 mg PO DAILY 07/12/18 [Last Taken ] Aspirin [Aspirin 81mg (*)] 81 mg PO HS 07/12/18 [Last Taken 07/11/18] C/E/Zn/Cu/OM3/DHA/EPA/LUT/ZEAX [Preservision Areds 2 Softgel] 1 each PO BIDMEAL 07/12/18 [Last Taken 07/11/18 18:00] Calcium Carbonate [Oyster Shell Calcium 500 mg (*)] 500 mg PO DAILY@12 07/12/18 [Last Taken 07/11/18] Carboxymethylcellulose 1% [Refresh Celluvisc (*)] 1 drop EACHEYE DAILY PRN 07/12 [Last Taken Unknown] Psyllium Husk (with Sugar) [Metamucil Packet] 1 each PO DAILY 07/12/18 [Last Taken 07/11/18] Hydrocodone/APAP 5/325 [[place] 5/325 (*)] 1 - 2 tab PO Q4HRS PRN tab 07/19/18 [ Last Taken Unknown] Methocarbamol [Robaxin 500 mg (*)] 1,000 mg PO QID PRN tab 07/19/18 [Last Taken Unknown] Polyethylene Glycol 3350 [Miralax 17 gm (*)] 17 gm PO DAILY PRN pkt 07/19/18 [ Last Taken Unknown] Discharge Medications: Refer to the Discharge Home Medication list for PRN reason. - Orders Services needed: Registered Nurse, Certified Service Center Appraiser, Physical Therapy, Occupational Therapy Diet Recommendation: no restrictions on diet Diet Texture: Regular Texture Diet Activity/Weight Bearing Restrictions: Activity as tolerated - improve mobility, ambulate Additional Instructions: apply ice or heat as needed for pain - Follow Up Care Current Providers and Referrals: NONE *PRIMARY CARE P,. [Primary Care Provider] - follow up in 2 weeks (after DC from SNF)
--- NOTE | 2018-07-19 12:18 | PDDCSUM ---
Discharge Summary Discharge Summary: Date of Admission: July 12, 2018 Date of Discharge: July 19, 2018 Discharge Diagnoses: Closed compression fracture L1, status post kyphoplasty Low back pain secondary to muscle spasms Hypertension Constipation Admission Diagnoses: L1 vertebral fracture Mechanical fall Hypertension Hyperlipidemia Consultants: Neurosurgery-Dr. Campos [facility] Course: Patient is a 77-year-old female who presented after having a fall at her daughter's house 3 days ago. She missed a step and fell on her back. She admitted to hitting her head and subsequently had a neck ache and mild headache. Most of the pain was located in her mid low back, where she was found to have an L1 compression fracture. Neurosurgery recommended non operative healing by wearing a [place] brace, to be followed with XR after 4 weeks. However, pain was not adequately controlled so patient underwent a kyphoplasty on July 16. Following the procedure, the patient still complained of paraspinal lumbar pain. She was given low-dose muscle relaxant to help with muscle spasms. She is also recommended to use ice or heat as needed to help with pain. Patient was transferred to a nursing home facility fair condition to continue working on mobility. Physical Exam: General: The patient is an elderly female who is alert and in no acute distress. HEENT: normocephalic, extraocular movements intact, conjunctivae clear, no lesions on face. Mucous membranes moist. Neck: trachea midline, no visible masses, no external lesions. Abd: soft and nondistended. Musculoskeletal: Normal muscle tone and bulk. Wearing back brace. Neuro: cranial nerves II XII grossly intact. Intact gross motor and sensory function. Psych: appropriate mood/affect. Skin: No pallor. Heme/lymph: No peripheral edema. Condition: Stable. Discharged to: residential facility. Pertinent tests/labs/imaging: Lumbar [id number] anterior superior wedge compression fracture of L1. Radiology procedure note: L1 kyphoplasty-6 CC cement injected, filling cleft. Medications: Please see med rec form. Special instructions: Apply ice or heat as needed for pain. Continue to wear back brace majority of the time. Follow up: Follow up with PCP in 2 weeks. Greater than 30 minutes of total time was spent on counseling and coordination of care for this patient's discharge.
[2018-07-19] MEDS: CALCIUM CARBONATE 500 MG TAB PO SCH (12:25)
--- NOTE | 2018-07-19 14:55 | ASMTCMCOM ---
CM Note CM Note Notes: Pt medically stable for d/c to [facility], insurance auth is in. van scheduled for 1445. Orders sent in [employer]. Pt children are updated. LUCI Gomes called report. Date Signed: 07/19/2018 02:55 PM Electronically Signed By:ANTHONY Faust
--- NOTE | 2018-07-19 14:56 | ASMTLACE ---
LACE Length of stay for Answers: 7-13 days current admission Acuity / Level of Answers: Yes Care: Did the patient have an inpatient admission? Comorbidities - select Answers: Other Notes: HTN; HLD all that apply # of Emergency department Answers: 1-2 visits in the last 6 months Score: 10 Date Signed: 07/19/2018 02:55 PM Electronically Signed By:ANTHONY Faust
--- NOTE | 2018-07-19 15:12 | ASDISCHSUM ---
Discharge Information Plan Status:SNF Medically Cleared to Leave: Discharge Date:07/19/2018 02:54 PM CM D/C Disposition:[facility]sp Facility ADT D/C Disposition:Usp Facility Projected Discharge Date:07/15/2018 11:00 AM Transportation at D/C:Wheelchair Van Discharge Delay Reason: Follow-Up Date:07/15/2018 11:00 AM Discharge Slot: Final Diagnosis: Placement Information Referral Type:*Custodial/SNF Referral ID:[id number] Provider Name:[facility] Address 1:[address] Address 2: City:[place] Selection Factors: State:[place] Patient Contact Information Contact Name:GEOVANI Relationship:Daughter Address:[address] [place] Work Phone: [facility]:[employer] Alternate Phone: State/Zip Code:[place] [address] Email: Financial Information Financial Class:Medicare Advantage Plans Primary Plan Desc:MYRIAM MEDICARE ADV Primary Plan Number:[id number] Secondary Plan Desc: Secondary Plan Number: Assessment Information [facility] Progress Note CM Note CM Note Notes: Patient lives independently at [facility] in [place]. She has a daughter, Marlena , who lives in [place] and her son Herbie lives in [place]. Marlena is in surgery having a total knee replacement (TKA) today. Patient will likely need HH or SNF at discharge. CM to follow Date Signed: 07/12/2018 01:18 PM Electronically Signed By:Elizabeth Arrington RN [facility] Length of stay for Answers: 7-13 days current admission Acuity / Level of Answers: Yes Care: Did the patient have an inpatient admission? Comorbidities - select Answers: Other Notes: HTN; HLD all that apply # of Emergency department Answers: 1-2 visits in the last 6 months Score: 10 Date Signed: 07/19/2018 02:55 PM Electronically Signed By:ANTHONY Faust [facility] CM Progress Note CM Note CM Note Notes: Patient admitted after a fall in which she sustained a L1 compression fracture. She is currently complaining of a lot of pain. A brace has been recommended. I spoke with patient's daughter (who is also at [facility] after a TKA). She feels that SNF rehab would be most appropriate for patient because she lives alone and daughter cannot help right away (she is willing to take her in in a few weeks, however). We discussed options of facilities including [facility], [facility] and [facility]. Daughter will consult with patient and will let us know where they want referrals sent. PT/OT ephraimals pending. Case Management will follow. Date Signed: 07/13/2018 11:13 AM Electronically Signed By:Kami Adams RN [facility] CM Progress Note CM Note CM Note Notes: Spoke w/pt's dtr Mima, she would like referrals to go to [facility], referrals sent. Pt may be able to dc . DC Plan: SNF Date Signed: 07/14/2018 02:07 PM Electronically Signed By:Ashwini Lai RN [facility] CM Progress Note CM Note CM Note Notes: [facility] has no bed availability and does not take pt insurance, [facility] was denied insurance auth by [facility] since they are out of network. Pt chooses [facility], insurance authorization needed and [facility] asked to pursue auth. Pt dghtr Magaly updated. Pt may now want surgery, which may be tomorrow. CM to follow. Date Signed: 07/15/2018 02:01 PM Electronically Signed By:ANTHONY Faust [facility] CM Progress Note CM Note CM Note Notes: Pt to OR today for kypho. LUCI Cotton with [phone] F: [phone] reports insurance auth will not be obtained until Thursday since they do not work weekends. Updated clincials need to be sent to Thursday. CM to follow. Date Signed: 07/16/2018 02:39 PM Electronically Signed By:ANTHONY Faust [facility] CM Progress Note CM Note CM Note Notes: Pt medically stable for d/c to [facility], insurance auth is in. van scheduled for 1445. Orders sent in [employer]. Pt children are updated. LUCI Gomes called report. Date Signed: 07/19/2018 02:55 PM Electronically Signed By:ANTHONY Faust Intervention Information
== END 2018-07-19 14:54 | DRG 517 ==
LOC: EDUNIT# → F3E 12:01 → F3N 13:36
PROVIDERS: ADMIT Internal Medicine; ATTEND Internal Medicine
DX: S32.010A Wedge compression fracture of first lumbar vertebra, initial encounter for closed fracture (principal); W10.8XXA Fall (on) (from) other stairs and steps, initial encounter; Y92.018 Other place in single-family (private) house as the place of occurrence of the external cause; I10 Essential (primary) hypertension; E78.00 Pure hypercholesterolemia, unspecified; K59.00 Constipation, unspecified; Z66 Do not resuscitate; Z23 Encounter for immunization
CPT/HCPCS: 96374; 97116-GP; 97161-GP; 97166-GO; 97530-GO; 97530-GP; 97535-GO; G0009; G8987-GO-CK; G8988-GO-CI; J0690; J1100; J1170; J1650; J2250; J2310; J2405; J3010

== ENCOUNTER 2018-10-10 20:27 | Inpatient (IN) | payer OTHER ==
--- NOTE | 2018-10-10 20:32 | EDPHY ---
H & P Time Seen by Provider: 10/10/18 20:37 HPI/ROS: CHIEF COMPLAINT: Nausea, vomiting, abdominal pain HISTORY OF PRESENT ILLNESS: The patient is an 78 y/o female who arrives via EMS from [facility] complaining of recurrent abdominal pain for the last 4 days associated with vomiting today. Since Thursday, every day after eating lunch she develops abdominal pain that she describes as "all over" and going through to her back. This pain lasts for several hours and has recurred every day after eating lunch. Today she developed associated vomiting and reports 7 episodes of non-bloody vomiting since onset. She has regular non- diarrheal bowel movements, though mentions the last few days stools have looked vaguely yellow in color. She additionally describes transient rigors yesterday afternoon and today. She received IV Zofran and morphine en route that have improved symptoms. Her daughter at bedside mentions that several family members developed diarrhea a day after a shared family meal Thursday night. REVIEW OF SYSTEMS: A ten system review of systems was performed and is negative with the exception of the items mentioned in the HPI. Past medical history: 1. Hypertension 2. Hyperlipidemia 3. L1 compression fracture 4. Depression 5. Muscle spasms - Flexeril Past surgical history: 1. Kyphoplasty L1 2017 2. Appendectomy 3. Hysterectomy 4. Right knee surgery 5. Right rotator cuff repair Family history: Noncontributory Social history: Daughter at bedside. Lives in independent living at [facility]. PCP: Dr. Suarez Prior medical records reviewed including admission 07/12/18 for L1 fracture. General Appearance: Alert. Vital signs reviewed. Eyes: Pupils equal and round, no conjunctival injection, no discharge. Anicteric. ENT, Mouth: Mucous membranes are dry, no oropharyngeal erythema or edema. Neck: No lymphadenopathy, supple. Respiratory: Lungs are clear to auscultation; no wheezes, rales, or rhonchi. Cardiovascular: Regular rate and rhythm; no murmur, rub, or gallop. Gastrointestinal: Abdomen is soft, RUQ tenderness, no guarding, no masses or organomegaly, bowel sounds normal. Skin: Warm and dry, no rashes on exposed skin, normal color. Back: Nontender to palpation over the thoracolumbar spine. No CVAT. Extremities: No lower extremity edema, no calf tenderness or swelling. Neurological: Alert and oriented. Moving all four extremities easily and equally. Psychiatric: Normal affect. - Medical/Surgical History Hx Asthma: No Hx Chronic Respiratory Disease: No Hx Diabetes: No Hx Cardiac Disease: No Hx Renal Disease: No Hx Cirrhosis: No Hx Alcoholism: No Hx HIV/AIDS: No Hx Splenectomy or Spleen Trauma: No Other PMH: r rotator cuff/ r knee surg, HTN, hysterectomy, cataracts - Social History Smoking Status: Never smoked Constitutional: Initial Vital Signs Temperature (C) 36 C 10/10/18 20:30 Heart Rate 90 10/10/18 20:30 Respiratory Rate 16 10/10/18 20:30 Blood Pressure 139/66 H 10/10/18 20:30 O2 Sat (%) 96 10/10/18 20:30 O2 Delivery Mode Room Air Allergies/Adverse Reactions: hydrocodone Allergy (Verified 10/10/18 21:08) hydromorphone Allergy (Verified 10/10/18 21:08) oxycodone Allergy (Verified 10/10/18 21:08) trazodone Allergy (Verified 10/10/18 21:08) Home Medications: Medication Instructions Recorded Escitalopram Oxalate [Lexapro 10 10 mg PO HS 01/19/17 MG] Lisinopril [Zestril 2.5 mg (*)] 2.5 mg PO DAILY 01/19/17 Simvastatin [Zocor] 40 mg PO DAILY18 01/19/17 Acetaminophen [Tylenol ES 500 mg 1,000 mg PO DAILY 07/12/18 (*)] Aspirin [Aspirin 81mg (*)] 81 mg PO HS 07/12/18 C/E/Zn/Cu/OM3/DHA/EPA/LUT/ZEAX 1 each PO BIDMEAL 07/12/18 [Preservision Areds 2 Softgel] Calcium Carbonate [Oyster Shell 500 mg PO DAILY@12 07/12/18 Calcium 500 mg (*)] Carboxymethylcellulose 1% [Refresh 1 drop EACHEYE DAILY PRN 07/12/18 Celluvisc (*)] Psyllium Husk (with Sugar) 1 each PO DAILY 07/12/18 [Metamucil Packet] Polyethylene Glycol 3350 [Miralax 17 gm PO DAILY PRN pkt 07/19/18 17 gm (*)] Flexeril 10 MG (*) 10/10/18 Medical Decision Making - Diagnostics Imaging Results: Imaging Impressions Abdomen Ultrasound 10/10/18 21:18 Impression: 1. Mild intra and extrahepatic biliary dilatation. 2. Gallstones and sludge without evidence of cholecystitis. Findings discussed with NANI MCCARTY 10/10/2018 at 22:05. Imaging: Discussed imaging studies w/ at home independent call center agent Radiologist ED Course/Re-evaluation: This is an 78 y/o female who presents with a 4-day history of recurrent abdominal pain, nausea, and vomiting every day after eating lunch. She has RUQ tenderness on exam and appears dehydrated. Suspect gallbladder etiology. Plan for IV, labs, UA, and symptomatic management as needed. 1L IV NS ordered. LFTs elevated. Abdominal US ordered. Ultrasound reported to me via telephone by Dr. Bandar Wisdom. Shows a common bile duct slightly enlarged 10 mm, sludge, some small stones. No signs of acute cholecystitis. Please see formal report. Patient will be admitted to the hospital for MRCP and further evaluation/ treatment as needed. Dr. Ignacio is the admitting physician. Will consult surgeon, should surgery be indicated. Differential Diagnosis: I considered a differential diagnosis that includes but is not limited to SBO, acute cholecystitis, ascending cholangitis, pancreatitis, small-bowel obstruction, gastritis, peptic ulcer disease, appendicitis, urinary tract infection. - Data Points Laboratory Results: Laboratory Results 10/10/18 20:30 10/10/18 20:30 10/10/18 10/10/18 20:30 20:30 WBC 13.20 10^3/uL H 10^3/uL (3.80-9.50) RBC 5.02 10^6/uL 10^6/uL (4.18-5.33) Hgb 14.7 g/dL g/dL (12.6-16.3) Hct 44.7 % % (38.0-47.0) MCV 89.0 fL fL (81.5-99.8) MCH 29.3 pg pg (27.9-34.1) MCHC 32.9 g/dL g/dL (32.4-36.7) RDW 14.5 % % (11.5-15.2) Plt Count 230 10^3/uL 10^3/uL (150-400) MPV 8.8 fL fL (8.7-11.7) Neut % (Auto) 95.4 % H % (39.3-74.2) Lymph % (Auto) 1.9 % L % (15.0-45.0) [place] % (Auto) 2.0 % L % (4.5-13.0) Eos % (Auto) 0.0 % L % (0.6-7.6) Baso % (Auto) 0.2 % L % (0.3-1.7) Nucleat RBC Rel Count 0.0 % % (0.0-0.2) Absolute Neuts (auto) 12.59 10^3/uL H 10^3/uL (1.70-6.50) Absolute Lymphs (auto) 0.25 10^3/uL L 10^3/uL (1.00-3.00) Absolute Monos (auto) 0.26 10^3/uL L 10^3/uL (0.30-0.80) Absolute Eos (auto) 0.00 10^3/uL L 10^3/uL (0.03-0.40) Absolute Basos (auto) 0.03 10^3/uL 10^3/uL (0.02-0.10) Absolute Nucleated RBC 0.00 10^3/uL 10^3/uL (0-0.01) Immature Gran % 0.5 % % (0.0-1.1) Immature Gran # 0.07 10^3/uL 10^3/uL (0.00-0.10) RBC/WBC/PLT Morphology TNP Platelet Estimate TNP Sodium 137 mEq/L mEq/L (135-145) Potassium 3.7 mEq/L mEq/L (3.5-5.2) Chloride 103 mEq/L mEq/L (97-110) Carbon Dioxide 23 mEq/l mEq/l (22-31) Anion Gap 11 mEq/L mEq/L (6-14) BUN 15 mg/dL mg/dL (7-23) Creatinine 0.6 mg/dL mg/dL (0.6-1.0) Estimated GFR > 60 Glucose 130 mg/dL H mg/dL (70-100) Calcium 9.3 mg/dL mg/dL (8.5-10.4) Total Bilirubin 6.1 mg/dL H mg/dL (0.1-1.4) Conjugated Bilirubin 4.2 mg/dL H mg/dL (0.0-0.5) Unconjugated Bilirubin 1.9 mg/dL H mg/dL (0.0-1.1) AST 582 IU/L H IU/L (14-46) ALT 617 IU/L H IU/L (9-52) Alkaline Phosphatase 337 IU/L H IU/L (38-126) Total Protein 7.0 g/dL g/dL (6.3-8.2) Albumin 4.2 g/dL g/dL (3.5-5.0) Lipase 208 IU/L IU/L (23-300) Medications Given: Discontinued Medications Sodium Chloride (Ns) 1,000 mls @ 0 mls/hr IV EDNOW ONE; Wide Open PRN Reason: Protocol Stop: 10/10/18 20:52 Last Admin: 10/10/18 21:08 Dose: 1,000 mls Departure - Departure Disposition: Home, Routine, Self-Care Clinical Impression: Elevated liver function tests Abdominal pain Qualifiers: Abdominal location: right upper quadrant Qualified Code(s): R10.11 - Right upper quadrant pain Condition: Fair Report Scribed for: Nani Mccarty Report Scribed by: Emily Kay Date of Report: 10/10/18 Time of Report: 21:16 Physician Review and Approval Statement: 10/10/18 20:32 Portions of this note were transcribed by the medical consultant. I, Dr. Nani Mccarty, personally performed the history, physical exam, and medical decision- making; and confirmed the accuracy of the information in the transcribed note.
[2018-10-10] MEDS ORDERED: NS 1,000 ML IV ONE (20:51)
[2018-10-10 20:57] LABS: PLATELET COUNT 230 10^3/uL (150-400)
[2018-10-10] MEDS ORDERED: ACETAMINOPHEN 325 MG TAB PO PRN (23:28)
[2018-10-10] MEDS ORDERED: ONDANSETRON DISINTEGRATING 4 MG TAB PO PRN (23:28)
[2018-10-10] MEDS ORDERED: ONDANSETRON 4 MG/2 ML VIAL IVP PRN (23:28)
[2018-10-10] MEDS: NS 1,000 ML IV SCH (23:56)
--- NOTE | 2018-10-11 00:31 | PDGENHP ---
History and Physical - Chief Complaint abdominal pain - History of Present Illness 78yo F with history of htn presents with 4 days of right sided abdominal pain. Starts in RUQ and radiates to back and RLQ. Some nausea but no emesis or diarrhea. Pain starts about 30 minutes after eating and describes as sharp and intense. She noticed chills, sweats, and "shaking" yesterday but no fevers. Pain is better when she doesn't eat. Never had pain like this before. No urinary symptoms. She denies any yellowing of skin or change in urine or stool color. In the ED, her labs were notable for a bilirubin of 6 with elevated AST and ALT. A RUQ ultrasound showed intra and extra hepatic biliary ductal dilatation along with gallstones and sludge. History Information - Allergies/Home Medication List Allergies/Adverse Reactions: hydrocodone Allergy (Verified 10/10/18 21:08) hydromorphone Allergy (Verified 10/10/18 21:08) oxycodone Allergy (Verified 10/10/18 21:08) trazodone Allergy (Verified 10/10/18 21:08) Home Medications: Escitalopram Oxalate [Lexapro 10 MG] 10 mg PO HS 01/19/17 [Last Taken 07/11/18] Lisinopril [Zestril 2.5 mg (*)] 2.5 mg PO DAILY 01/19/17 [Last Taken 07/11/18] Simvastatin [Zocor] 40 mg PO DAILY18 01/19/17 [Last Taken 07/11/18] Acetaminophen [Tylenol ES 500 mg (*)] 1,000 mg PO DAILY 07/12/18 [Last Taken ] Aspirin [Aspirin 81mg (*)] 81 mg PO HS 07/12/18 [Last Taken 07/11/18] C/E/Zn/Cu/OM3/DHA/EPA/LUT/ZEAX [Preservision Areds 2 Softgel] 1 each PO BIDMEAL 07/12/18 [Last Taken 07/11/18 18:00] Calcium Carbonate [Oyster Shell Calcium 500 mg (*)] 500 mg PO DAILY@12 07/12/18 [Last Taken 07/11/18] Carboxymethylcellulose 1% [Refresh Celluvisc (*)] 1 drop EACHEYE DAILY PRN 07/12 [Last Taken Unknown] Psyllium Husk (with Sugar) [Metamucil Packet] 1 each PO DAILY 07/12/18 [Last Taken 07/11/18] Flexeril 10 MG (*) 10/10/18 [Last Taken Unknown] I have personally reviewed and updated: family history, medical history, social history, surgical history - Past Medical History Additional medical history: HTN, HLD, mild depression, L1 compression fracture - Surgical History Additional surgical history: appendectomy, hysterectomy, TKA, L1 kyphoplasty () - Family History Positive for: non-pertinent - Social History Smoking Status: Never smoked Alcohol Use: Rarely Drug Use: None Additional social history: Lives in independent living facility. Daughter in area. Review of Systems Review of Systems: ROS: 10pt was reviewed & negative except for what was stated in HPI & below Physical Exam Physical Exam: Temp Pulse Resp BP Pulse Ox 37.3 C 89 17 104/56 L 96 10/10/18 22:51 10/10/18 22:51 10/10/18 22:51 10/10/18 22:51 10/10/18 22:51 O2 (L/minute) 2 Constitutional: no apparent distress, appears nourished, not in pain Eyes: PERRL, EOMI, icteric sclera Ears, Nose, Mouth, Throat: moist mucous membranes, hearing normal, ears appear normal, no oral mucosal ulcers Cardiovascular: regular rate and rhythym, no murmur, rub, or gallop, No edema Respiratory: no respiratory distress, no rales or rhonchi, clear to auscultation Gastrointestinal: normoactive bowel sounds, soft, non-tender abdomen, no palpable masses, No tenderness, No guarding, No distension Genitourinary: no bladder fullness, no bladder tenderness Skin: warm, normal color, no rashes or abrasions, no fluctuance, no induration, No mottled Musculoskeletal: full muscle strength, no muscle tenderness, normal joint ROM, no joint effusions Neurologic: AAOx3 Psychiatric: interacting appropriately, not anxious, not encephalopathic, thought process linear Lab Data & Imaging Review 10/10/18 20:30 10/10/18 20:30 WBC 13.20 10^3/uL (3.80-9.50) H 10/10/18 20:30 RBC 5.02 10^6/uL (4.18-5.33) 10/10/18 20:30 Hgb 14.7 g/dL (12.6-16.3) 10/10/18 20:30 Hct 44.7 % (38.0-47.0) 10/10/18 20:30 MCV 89.0 fL (81.5-99.8) 10/10/18 20:30 MCH 29.3 pg (27.9-34.1) 10/10/18 20: MCHC 32.9 g/dL (32.4-36.7) 10/10/18 20: RDW 14.5 % (11.5-15.2) 10/10/18 20: Plt Count 230 10^3/uL (150-400) 10/10/18 20: MPV 8.8 fL (8.7-11.7) 10/10/18 20:30 Neut % (Auto) 95.4 % (39.3-74.2) H 10/10/18 20: Lymph % (Auto) 1.9 % (15.0-45.0) L 10/10/18 20: [place] % (Auto) 2.0 % (4.5-13.0) L 10/10/18 20:30 Eos % (Auto) 0.0 % (0.6-7.6) L 10/10/18 20:30 Baso % (Auto) 0.2 % (0.3-1.7) L 10/10/18:30 Nucleat RBC Rel Count 0.0 % (0.0-0.2) 10/10/18 20:30 Absolute Neuts (auto) 12.59 10^3/uL (1.70-6.50) H 10/10/18 20:30 Absolute Lymphs (auto) 0.25 10^3/uL (1.00-3.00) L 10/10/18 20:30 Absolute Monos (auto) 0.26 10^3/uL (0.30-0.80) L 10/10/18 20:30 Absolute Eos (auto) 0.00 10^3/uL (0.03-0.40) L 10/10/18 20:30 Absolute Basos (auto) 0.03 10^3/uL (0.02-0.10) 10/10/18 20:30 Absolute Nucleated RBC 0.00 10^3/uL (0-0.01) 10/10/18 20: Immature Gran % 0.5 % (0.0-1.1) 10/10/18 20:30 Immature Gran # 0.07 10^3/uL (0.00-0.10) 10/10/18 20:30 RBC/WBC/PLT Morphology TNP 10/10/18 20:30 Platelet Estimate TNP 10/10/18 20:30 Sodium 137 mEq/L (135-145) 10/10/18 20:30 Potassium 3.7 mEq/L (3.5-5.2) 10/10/18 20:30 Chloride 103 mEq/L (97-110) 10/10/18 20:30 Carbon Dioxide 23 mEq/l (22-31) 10/10/18 20:30 Anion Gap 11 mEq/L (6-14) 10/10/18 20:30 BUN 15 mg/dL (7-23) 10/10/18 20:30 Creatinine 0.6 mg/dL (0.6-1.0) 10/10/18 20:30 Estimated GFR > 60 10/10/18 20:30 Glucose 130 mg/dL (70-100) H 10/10/18 20:30 Calcium 9.3 mg/dL (8.5-10.4) 10/10/18 20:30 Total Bilirubin 6.1 mg/dL (0.1-1.4) H 10/10/18 20:30 Conjugated Bilirubin 4.2 mg/dL (0.0-0.5) H 10/10/18 20:30 Unconjugated Bilirubin 1.9 mg/dL (0.0-1.1) H 10/10/18 20:30 AST 582 IU/L (14-46) H 10/10/18 20:30 ALT 617 IU/L (9-52) H 10/10/18 20:30 Alkaline Phosphatase 337 IU/L (38-126) H 10/10/18 20:30 Total Protein 7.0 g/dL (6.3-8.2) 10/10/18 20:30 Albumin 4.2 g/dL (3.5-5.0) 10/10/18 20:30 Lipase 208 IU/L (23-300) 10/10/18 20:30 Visualized and Interpreted imaging results: Yes Assessment & Plan Assessment: 78yo F with history of htn presents with 4 days of right sided abdominal pain found to have abnormal LFTs. Plan: 1. Acute abdominal pain: Concerning for cholangitis given presence of conjugated hyperbilirubinemia and suspected rigors. - Check blood cultures - Start ceftriaxone 1g q24h, metronidazole 500mg q8h - MRCP - Consult GI in AM pending results of above - Pain control with morphine PRN 2. Abnormal LFTs: Indicative of biliary obstruction, suspect choledocholithiasis with gallstones on US. - Trend daily 3. Leukocytosis: Related to above. She is not septic. - Monitor 4. HTN: Holding home med for now. 5. Depression: Resume home meds once reconciliation complete. VTE ppx: SCDs Diet: NPO Code: DNR (she is ok with temporary reversal for procedure) MDPOA: daughter, Ana Lilia Alvarado Dispo: Admit as inpatient
[2018-10-11 05:21] LABS: PLATELET COUNT 198 10^3/uL (150-400)
[2018-10-11 05:26] LABS: INR 1.34 (0.83-1.16); PROTIME(PATIENT) 16.8 SEC (12.0-15.0)
--- NOTE | 2018-10-11 10:14 | PDMN ---
Medical Necessity Medical necessity: Pt meets IP criteria as of 10/10/2018 per and MCG [id number] ( Gallbladder or bile duct inflammation or stone); est los > 2 mn for ongoing tx and management of cholangitis with elevated WBC, bilirubin, ALP, AST and ALT.
[2018-10-11] MEDS ORDERED: GADOBUTROL 10 ML VIAL IVP ONE (10:34)
--- NOTE | 2018-10-11 11:10 | ASMTCMCOM ---
CM Note CM Note Notes: CM spoke to LUCI Mcclure regarding d/c POC. Pt is a 78 y/o female admitted for elevated lfts and abdominal pain. Pt normally lives independently in her own apartment. Therapies have been ordered and awaiting recommendations. Needs are TBD at this time. CM to follow. Plan: TBD Date Signed: 10/11/2018 11:08 AM Electronically Signed By:JAYDA Miranda
[2018-10-11] MEDS: NS 1,000 ML IV SCH (15:44)
--- NOTE | 2018-10-11 15:54 | GCON ---
CHIEF COMPLAINT: 78-year-old woman with jaundice, abnormal liver function tests , and epigastric pain. REASON FOR CONSULTATION: I have been asked to see this very pleasant 78-year- old woman in consultation by Dr. Posada for evaluation of epigastric pain, abnormal liver function tests, questionable choledocholithiasis/cholelithiasis. HISTORY OF PRESENT ILLNESS: This 78-year-old woman lives in assisted living at [facility]. She was well until Thursday. She was eating lunch. She felt somewhat diaphoretic with some chest discomfort. She went to lay down and felt better that evening. That night she slept well. , she had another attack of abdominal discomfort with nausea. On Thursday, she had a severe attack of significant chest pain discomfort with associated nausea, vomiting. She denied any fevers or chills. She was brought by an ambulance to [facility]. In the emergency department, she was noted to have abnormal liver function tests with elevated total bilirubin of 6 with elevated AST and ALT. Right upper quadrant ultrasound in the emergency department revealed mild intra- and extrahepatic biliary ductal dilatation with gallstones and sludge in the gallbladder without evidence of cholecystitis. Her total bilirubin was 6.1 with an AST of 582 and an ALT of 617 and alkaline phosphatase of 337. The patient has had resolution of abdominal pain since admission. She has been n.p.o. She was noted to have a slightly elevated white count of 16.48 with a normal hemoglobin 12.0 and hematocrit 37.9. PT was 16.8 with an INR of 1.34. The patient is scheduled to have an MRCP. Asked to see patient for further evaluation. PAST MEDICAL HISTORY: Remarkable for hypertension, depression, hypercholesterolemia, personal history of colon polyps, L1 compression fracture. PAST SURGICAL HISTORY: Remarkable for right total knee replacement, right shoulder surgery for bone spur, hysterectomy, and appendectomy. MEDICATIONS: Prior to admission included Lexapro, lisinopril, simvastatin, acetaminophen and aspirin, and PreserVision. ALLERGIES: The patient reports allergies to hydrocodone, oxycodone, trazodone. FAMILY HISTORY: Negative as it pertains to chief complaint. SOCIAL HISTORY: Nonsmoker, nondrinker. Lives independently at [facility]. REVIEW OF SYSTEMS: Negative 10 systems other than mentioned in HPI. PHYSICAL EXAM: GENERAL: A very pleasant woman, in no acute distress, sitting in a chair appearing jaundiced. VITAL SIGNS: 37.3, pulse 89, respiratory rate 17, 104/56, pulse ox 96% on room air. HEENT: Normocephalic, atraumatic. EOMI. Scleral icterus. Mucous membranes moist. NECK: Supple. No cervical adenopathy. No thyromegaly. LUNGS: Clear. CARDIAC: Normal S1, S2 without murmur. ABDOMEN: Soft, benign. No hepatosplenomegaly. Nontender. EXTREMITIES: Without clubbing, cyanosis, edema. SKIN: Warm, dry, intact with jaundiced appearing skin. PSYCH: Alert and oriented x3 with normal affect. NEUROLOGIC: Nonfocal. LABORATORY DATA: As above. IMPRESSION: An 78-year-old woman with clinical presentation consistent with cholelithiasis and choledocholithiasis. Patient has had some improvement of her liver function tests during admission; however, she is still jaundice. Suspect choledocholithiasis. RECOMMENDATIONS: 1. N.p.o. 2. Patient has had MRCP. We will check MRCP. 3. If MRCP is positive for evidence of biliary obstruction or choledocholithiasis, we will proceed with urgent ERCP, sphincterotomy, stone extraction. We will follow with you. Thank you for allowing us to participate in the care of this patient. /[id number]/MODL [id number]
[2018-10-11] MEDS ORDERED: LR 1,000 ML IV ONE (16:34)
--- NOTE | 2018-10-11 16:46 | PDANEPAE ---
ANE History of Present Illness here for ERCP ANE Past Medical History - Cardiovascular History Hx Hypertension: Yes Hx Arrhythmias: No Hx Chest Pain: No Hx Coronary Artery / Peripheral Vascular Disease: No Hx CHF / Valvular Disease: No Hx Palpitations: No - Pulmonary History Hx COPD: No Hx Asthma/Reactive Airway Disease: No Hx Recent Upper Respiratory Infection: No Hx Oxygen in Use at Home: No Hx Sleep Apnea: No Sleep Apnea Screening Result - Last Documented: Negative - Endocrine History Hx Diabetes: No - Renal History Hx Renal Disorders: No - Neurological & Psychiatric Hx Hx Neurological and Psychiatric Disorders: Yes - Chronic Pain History Chronic Pain: No ANE Review of Systems Review of systems is: negative Review of Systems: - Exercise capacity Exercise capacity: >=4 METS ANE Patient History - Allergies Allergies/Adverse Reactions: hydrocodone Allergy (Verified 10/11/18 16:17) hydromorphone Allergy (Verified 10/11/18 16:17) oxycodone Allergy (Verified 10/11/18 16:17) trazodone Allergy (Verified 10/11/18 16:17) - Home Medications Home medications: home medication list seen and reviewed Home Medications: Escitalopram Oxalate [Lexapro 10 MG] 10 mg PO HS 01/19/17 [Last Taken 10/07/18] Lisinopril [Zestril 2.5 mg (*)] 2.5 mg PO DAILY 01/19/17 [Last Taken 10/07/18] Simvastatin [Zocor] 40 mg PO DAILY18 01/19/17 [Last Taken 10/07/18] Aspirin [Aspirin 81mg (*)] 81 mg PO HS 07/12/18 [Last Taken 10/07/18] C/E/Zn/Cu/OM3/DHA/EPA/LUT/ZEAX [Preservision Areds 2 Softgel] 1 each PO BIDMEAL 07/12/18 [Last Taken 10/07/18] Psyllium Husk (with Sugar) [Metamucil Packet] 1 each PO DAILY 07/12/18 [Last Taken 10/07/18] Acetaminophen [Tylenol 325mg (*)] 650 mg PO Q6HRS PRN 10/11/18 [Last Taken 10/09] Cyclobenzaprine [Flexeril 10 MG (*)] 5 mg PO HS 10/11/18 [Last Taken 10/07/18] Herbals/Supplements -Info Only 1 ea PO DAILY 10/11/18 [Last Taken Unknown] - NPO status NPO Status: no food or drink >8 hours NPO Since - Liquids (Date): 10/10/18 NPO Since - Liquids (Time): 20:00 NPO Since - Solids (Date): 10/10/18 NPO Since - Solids (Time): 20:00 - Smoking Hx Smoking Status: Never smoked - Alcohol Use Alcohol Use: Rarely ANE Labs/Vital Signs - Labs Result Diagrams: 10/11/18 04:25 10/11/18 04:25 - Vital Signs Blood Pressure: 113/57 Heart Rate: 70 Respiratory Rate: 16 O2 Sat (%): 96 Height: 167.64 cm Weight: 65.771 kg ANE Physical Exam - Airway Neck exam: FROM Mallampati Score: Class 1 - Pulmonary Pulmonary: no respiratory distress - Cardiovascular Cardiovascular: regular rate and rhythym - ASA Status ASA Status: II ANE Anesthesia Plan Anesthesia Plan: general endotracheal anesthesia
[2018-10-11] MEDS ORDERED: fentaNYL 100 MCG/2 ML INJ IVP PRN (16:49)
[2018-10-11] MEDS ORDERED: ALBUTEROL 3 ML DEYVIAL IH PRN (16:49)
[2018-10-11] MEDS ORDERED: DEXAMETHASONE 4 MG/ML VIAL IVP PRN (16:49)
[2018-10-11] MEDS ORDERED: LR 500 ML IV PRN (16:49)
[2018-10-11] MEDS ORDERED: NALOXONE HCL 0.4 MG/ML INJ IVP PRN (16:49)
[2018-10-11] MEDS ORDERED: ONDANSETRON 4 MG/2 ML VIAL IVP PRN (16:49)
[2018-10-11] MEDS ORDERED: GLUCAGON HCL 1 MG VIAL ONE (16:54)
[2018-10-11] MEDS ORDERED: ROCURONIUM 50 MG/5 ML VIAL ONE (16:54)
[2018-10-11] MEDS ORDERED: PROPOFOL/EMULSION 500 MG/50 ML BOTTLE IV ONE (16:54)
[2018-10-11] MEDS ORDERED: IOTHALAMATE MEG (CONRAY) 50 ML VIAL IV ONE (16:54)
[2018-10-11] MEDS ORDERED: LIDOCAINE HCL 160 MG/4 ML LTA KIT TP ONE (17:05)
[2018-10-11] MEDS ORDERED: PETROLAT,WHT/MIN OIL/SOD CHL 3.5 GM OPHT.OINT ONE (17:05)
[2018-10-11] MEDS ORDERED: DEXAMETHASONE 4 MG/ML VIAL ONE (17:24)
[2018-10-11] MEDS ORDERED: ONDANSETRON 4 MG/2 ML VIAL ONE (17:24)
--- NOTE | 2018-10-11 17:33 | HOSPPROG ---
Hospitalist Progress Note Assessment/Plan: Subjective Follow-up on right upper quadrant abdominal pain. No acute events overnight. Patient states that while being NPO she has done okay in regards to any abdominal pain and has not had any additional nausea or vomiting. I reviewed her case with Dr. Cuadra with Gastroenterology. We reviewed her MRCP which showed evidence of gallstones in the common bile duct. The plan is to take her for ERCP this evening. I reviewed this finding with both the patient and her daughter is well. Objective Vital signs as detailed below Exam General-awake alert conversant no acute distress Heart-regular rate and rhythm no murmurs Lungs-Clear to auscultation with normal respiratory effort Abdomen-soft nondistended normal bowel sounds, she actually tolerated reasonable amount of right upper quadrant pressure. -no Eduardo catheter in place Extremities-no significant pitting edema or calf pain with palpation Skin-no concerning skin rashes noted Labs as detailed below Assessment and plan Choledocholithiasis with cholangitis-patient will proceed for ERCP later this afternoon. Continue current antibiotic therapy. Hypertension-hold lisinopril 2.5 mg daily for now. Hyperlipidemia-hold simvastatin in light of transaminitis. Depression-continue Lexapro. DVT prophylaxis-compression devices for now. Disposition-will see how she recovers after ERCP and how she does with advancing her diet. Likely could be discharged back to home where she has been living independently with her . Objective: Vital Signs Temp Pulse Resp BP Pulse Ox 36.4 C 70 16 113/57 L 96 10/11/18 16:45 10/11/18 16:45 10/11/18 16:45 10/11/18 16:45 10/11/18 16:45 Laboratory Results 10/11/18 04:25 10/11/18 04:25 10/10/18 10/11/18 10/12/18 05:59 05:59 05:59 Intake Total 300 Output Total 400 300 Balance -400 0 PT 16.8 SEC (12.0-15.0) H 10/11/18 04:25 INR 1.34 (0.83-1.16) H 10/11/18 04:25 ICD10 Worksheet Patient Problems: Problems Problem Status Onset Abdominal pain Acute Elevated liver function tests Acute L1 vertebral fracture Acute
[2018-10-11] MEDS ORDERED: SUGAMMADEX SODIUM 200 MG/2 ML VIAL IVP ONE (18:21)
--- NOTE | 2018-10-11 18:42 | GIREPORT ---
[facility] - Endoscopy Department Patient Name: Naty Alvarado Procedure Date: 10/11/2018 5:12 PM Patient Type: Inpatient Attending MD/ ER Physician: Rodriguez Cuadra MD Procedure: ERCP Indications: Abdominal pain of suspected biliary origin, Suspected ascending cholang itis, Jaundice, Elevated liver enzymes Providers: Rodriguez Cuadra MD Medicines: General Anesthesia Complications: No immediate complications. Description of Procedure: After obtaining informed consent, the scope was passed under direct vis ion. Throughout the procedure, the patient's blood pressure, pulse, and oxyg en saturations were monitored continuously. The Duodenalscope was introduc ed through the mouth, and advanced to the duodenum and used to cannulate t he bile duct. The ERCP was unusually difficult due to challenging cannulat ion because of intradiverticular papilla. Successful completion of the proc edure was aided by putting duodenscope into the long postition. The patient tolerated the procedure well. Findings: The scope was advanced to a normal major papilla in the descending duod enum. Examination of the pharynx, larynx and associated structures, and upper GI tract was normal. The major papilla was located entirely within a diverticulum. The major papilla was normal. A long 0.035 inch Soft Jagw wanda passed successfully into the left and right hepatic ducts and all intrahepatic branches. A 9 mm biliary sphincterotomy was made with a traction (standard) sphincterotome using ERBE electrocautery. Moderate bleeding from the sphincterotomy stopped within 5 minutes. The common b ile duct was diffusely dilated, with a stone causing an obstruction. The la rgest diameter was 10 mm. To discover objects, the biliary tree was swept wit h a 12 mm balloon starting at the bifurcation. Sludge was swept from the du ct. A few stones were removed. ? one stones remained. Pus was swept from the duct. One 10 Fr by 5 cm plastic stent with a single external flap and a singl e internal flap was placed 4 cm into the common bile duct. Bile flowed th rough the stent. The stent was in good position. Sphintertomy site was inject ed wtih epinephrine 3 cc, 1/10,000. Estimated Blood Loss: Estimated blood loss was minimal. Post Op Diagnosis: - The major papilla was located entirely within a diverticulum. - The major papilla appeared normal. - The common bile duct was dilated, with a stone causing an obstruction . - A biliary sphincterotomy was performed. - The biliary tree was swept and pus was found. - Choledocholithiasis was found. Partial removal was accomplished with biliary sphincterotomy; a stent was inserted. Recommendation: - Clear liquid diet. - Observe patient's clinical course. - Check liver enzymes (AST, ALT, alkaline phosphatase, bilirubin) in th e morning. - Return to my partner for stent removal at ERCP in 6 weeks. - Thank you for allowing me to participate in the care of your patient. Attending Participation: I personally performed the entire procedure. Rodriguez Cuadra MD Rodriguez Cuadra MD 10/11/2018 6:42:08 PM This report has been signed electronicallyStdalton Cuadra MD Number of Addenda: 0 Note Initiated On: 10/11/2018 5:12 PM [email or web address]
[2018-10-11] MEDS ORDERED: ESCITALOPRAM OXALATE 10 MG TAB PO SCH (21:00)
[2018-10-12 11:39] VITALS: BP 118/63
--- NOTE | 2018-10-12 12:46 | SOAPPROG ---
SOAP Progress Note Assessment/Plan: Assessment: Patient s/p ERCP with sphincterotomy and stone extraction. Pus from bile duct c /w cholangitis. Bile duct stented/ May have residual stone. LFTs improved Plan: 1. Continue on antibiotics 2. Advance diet. 3. Recommend surgical consult fro cholecystectomy 4. Repeat LFTs in morning 5 Will need repeat ERCP and stent removal i 6 - 8 weeks 10/12/18 12:47 Subjective: CC: Epigastric pain, abnormal LFTs Feeling week, but no pain and feeling better. Tolerating liquids. Objective: Generic Name Dose Route Start Last Admin Trade Name Freq PRN Reason Stop Dose Admin Acetaminophen 650 mg 10/10/18 23:28 10/11/18 23:45 Tylenol PO 04/08/19 23:27 650 mg Q4HRS PRN Administration Pain, Mild/Fever, Can Take PO Escitalopram Oxalate 10 mg 10/11/18 21:00 10/11/18 20:44 Lexapro PO 04/09/19 20:59 10 mg HS SINTIA Administration Ceftriaxone Sodium/Dextrose 50 mls @ 100 mls/hr 10/10/18 23:45 10/11/18 23:50 Rocephin 1 Gm (Premix) IV 11/09/18 23:44 50 mls Q24H SINTIA Administration Protocol Metronidazole/Sodium Chloride 100 mls @ 100 mls/hr 10/11/18 00:00 10/12/18 08 :01 Flagyl 500 Mg (Premix) IV 11/10/18 00:00 100 mls Q8H SINTIA Administration Protocol Sodium Chloride 1,000 mls @ 100 mls/hr 10/10/18 23:30 10/11/18 15:44 Ns IV 04/08/19 23:29 1,000 mls CONT SINTIA Administration Morphine Sulfate 1 - 2 mg 10/10/18 23:28 Morphine IVP 10/20/18 23:27 Q1HR PRN Pain, Severe Unable to Take PO Ondansetron HCl 4 mg 10/10/18 23:28 Zofran IVP 04/08/19 23:27 Q4HRS PRN Nausea/Vomiting, Can't Take PO Ondansetron HCl 4 mg 10/10/18 23:28 Zofran Odt PO 04/08/19 23:27 Q4HRS PRN Nausea/Vomiting, Use 1st Discontinued Medications Generic Name Dose Route Start Last Admin Trade Name Lalo PRN Reason Stop Dose Admin Albuterol 3 ml 10/11/18 16:49 Proventil Neb IH 10/11/18 17:50 Q10M PRN PACU, Wheezing Dexamethasone 4 mg 10/11/18 16:49 Decadron Injection IVP 10/11/18 17:50 ONCE PRN PACU, Nausea/Vomiting Dexamethasone Confirm 10/11/18 17:24 Decadron Injection Administered 10/11/18 17:25 Dose 4 mg .ROUTE .STK-MED ONE Fentanyl 25 - 100 mcg 10/11/18 16:49 Sublimaze IVP 10/11/18 17:50 Q5M PRN PACU, IMMEDIATE Pain control Gadobutrol Confirm 10/11/18 10:34 Gadavist 1 Mmol/Ml Administered 10/11/18 10:35 Dose 10 ml IVP .STK-MED ONE Glucagon Confirm 10/11/18 16:54 Glucagon Administered 10/11/18 16:55 Dose 1 mg .ROUTE .STK-MED ONE Sodium Chloride 1,000 mls @ 0 mls/hr 10/10/18 20:51 10/10/18 21:08 Ns IV 10/10/18 20:52 1,000 mls EDNOW ONE Administration Protocol Wide Open Lactated Ringer's 1,000 mls @ 0 mls/hr 10/11/18 16:34 10/11/18 16:48 Lr IV 10/11/18 16:35 Not Given ONCE ONE As Directed Lactated Ringer's 500 mls @ 0 mls/hr 10/11/18 16:49 Lr IV 10/11/18 17:50 PRN PRN PACU, Nausea/Vomiting Post-Op Wide Open Iothalamate Meglumine Confirm 10/11/18 16:54 Conray Administered 10/11/18 16:55 Dose 50 ml IV .STK-MED ONE Lidocaine HCl Confirm 10/11/18 17:05 Lta Kit Pre-Attached Administered 10/11/18 17:06 Dose 160 mg TP .STK-MED ONE Mineral Oil/Petrolatum/Sodium Cl Confirm 10/11/18 17:05 Refresh P.M. Ointment Administered 10/11/18 17:06 Dose 28 alena .ROUTE .STK-MED ONE Naloxone HCl 0.1 mg 10/11/18 16:49 Narcan IVP 10/11/18 17:49 Q2M PRN PACU Resp Rate <10/min Ondansetron HCl 2 - 4 mg 10/11/18 16:49 Zofran IVP 10/11/18 17:50 Q10M PRN PACU, Nausea/Vomiting Ondansetron HCl Confirm 10/11/18 17:24 Zofran Administered 10/11/18 17:25 Dose 4 mg .ROUTE .STK-MED ONE Propofol Confirm 10/11/18 16:54 Diprivan 10 Mg/Ml (Premix) Administered 10/11/18 16:55 Dose 500 mg IV .STK-MED ONE Rocuronium [place] Confirm 10/11/18 16:54 Zemuron Administered 10/11/18 16:55 Dose 50 mg .ROUTE .STK-MED ONE Sugammadex Sodium Confirm 10/11/18 18:21 Bridion Administered 10/11/18 18:22 Dose 200 mg IVP .STK-MED ONE Vital Signs Temp Pulse Resp BP Pulse Ox 36.8 C 73 16 118/63 93 10/12/18 11:39 10/12/18 11:39 10/12/18 11:39 10/12/18 11:39 10/12/18 11:39 Microbiology 10/11/18 04:32 Blood Panel (PCR) - Final Blood Staph Coagulase Negative Laboratory Results 10/11/18 04:25 10/11/18 04:25 10/11/18 10/12/18 10/13/18 05:59 05:59 05:59 Intake Total 975 Output Total 400 850 200 Balance -400 125 -200 PT 16.8 SEC (12.0-15.0) H 10/11/18 04:25 INR 1.34 (0.83-1.16) H 10/11/18 04:25 Physical Exam - Physical Exam General Appearance: alert, no apparent distress Respiratory: lungs clear, normal breath sounds Cardiac/Chest: regular rate, rhythm Abdomen: normal bowel sounds, non-tender, soft Skin: normal color, warm/dry Neuro/Psych: alert, normal mood/affect, oriented x 3 ICD10 Worksheet Patient Problems: Problems Problem Status Onset Abdominal pain Acute Elevated liver function tests Acute L1 vertebral fracture Acute
--- NOTE | 2018-10-12 15:55 | PDIAF ---
- Diagnosis Code Status: Do Not Resuscitate - Medication Management Discharge Medications: electronically signed and located in the Home Medication List. - Orders Services needed: Home Assisted Care Face to Face: I certify that this patient was under my care and that I had the required [id number] encounter meeting the encounter requirements on the discharge day. My findings support the fact that the patient is homebound as defined in Home Care Face to Face Continued: CMS Chapter 7 Medicare Benefits Manual 30.1.1 , The condition of the patient is such that there exists a normal inability to leave home and consequently, leaving home would require a considerable and taxing effort. - Follow Up Care Current Providers and Referrals: Patient,NotPresent [Unknown] - As per Instructions
--- NOTE | 2018-10-12 16:02 | PDDCSUM ---
Discharge Summary Discharge Summary: Date of Admission: 10/10/2018 Date of Discharge: 10/12/2018 Consults: GI Procedures: ERCP, stone removal, stent placement Followup: PCP (for repeat LFTs within next few days), GI (in 6 weeks), General Surgery (referral to be placed by PCP for cholecystectomy evaluation in the future) Hospital Course Problem List: Choledocholithiasis with cholangitis - S/p ERCP which showed CBG stone, s/p stone removal and stent placement - LFTs downtrending, will f/u with PCP for repeat labs by end of the week - Was on Ceftriaxone/Flagyl IV while IP, will transition to Cipro/Flagyl to complete 5 day course - Tolerating diet this afternoon - Patient to f/u with general surgeon for cholecystectomy evaluation Hypertension -Continue lisinopril 2.5 mg daily Hyperlipidemia- Restart simvastatin, was held in light of transaminitis Depression-continue Lexapro. Time spent on discharge was >35 minutes with >50% of time spent on patient education and counseling.
[2018-10-12] MEDS ORDERED: CIPROFLOXACIN 500 MG TAB PO SCH (20:00)
[2018-10-12] MEDS ORDERED: metroNIDAZOLE 500 MG TAB PO SCH (22:00)
--- NOTE | 2018-10-13 13:09 | PDIAF ---
- Diagnosis Diagnosis: Cholangitis Code Status: Do Not Resuscitate - Medication Management Discharge Medications: electronically signed and located in the Home Medication List. - Orders Services needed: Home Care, Physical Therapy, Occupational Therapy Home Care Face to Face: I certify that this patient was under my care and that I had the required [id number] encounter meeting the encounter requirements on the discharge day. My findings support the fact that the patient is homebound as defined in Home Care Face to Face Continued: CMS Chapter 7 Medicare Benefits Manual 30.1.1 , The condition of the patient is such that there exists a normal inability to leave home and consequently, leaving home would require a considerable and taxing effort. Additional Instructions: 1. Please followup with your primary care doctor within the next week to have repeat liver function tests performed as well as having a referral placed to a general surgeon for a evaluation to have your galbladder removed in the future. I have also prescribed you 2 antibiotics, Flagyl and Cipro, which you will take as prescribed for the next 3 days. You will also followup with the GI doctors in 6 weeks to have the stent they placed evaluated, if they do not contact you in the next week or so for an appointment please contact their office to schedule one, their office number is [phone]. - Follow Up Care Current Providers and Referrals: Patient,NotPresent [Unknown] - As per Instructions
== END 2018-10-12 17:58 | disposition home or self-care (01) | DRG 446 ==
LOC: EDUNIT# → F3E 22:40
PROVIDERS: ADMIT Internal Medicine; ATTEND Internal Medicine
PROC: 0FC98ZZ Extirpation of Matter from Common Bile Duct, Via Natural or Artificial Opening Endoscopic (ICD-10-PCS; principal; 2018-10-11 17:13)
PROC: 0F798DZ Dilation of Common Bile Duct with Intraluminal Device, Via Natural or Artificial Opening Endoscopic (ICD-10-PCS; principal; 2018-10-11 17:13)
DX: K80.30 Calculus of bile duct with cholangitis, unspecified, without obstruction (principal); E86.9 Volume depletion, unspecified; I10 Essential (primary) hypertension; E78.00 Pure hypercholesterolemia, unspecified; F32.9 Major depressive disorder, single episode, unspecified; Z66 Do not resuscitate; Z96.651 Presence of right artificial knee joint
CPT/HCPCS: 97116-GP; 97161-GP; 97165-GO; 97535-GO; A9585; C2625; J0696; J1100; J1610; J2405; J2704; Q9961